=== PATIENT | male | born 1985 | race Caucasian/White ===

== ENCOUNTER 2020-02-03 17:40 | Emergency (ER) | payer BC, SELFPAY ==
[2020-02-03] VITALS (10 sets, daily range): BP systolic 122–159; BP diastolic 80–107; PULSE 61–80; RESP 20; TEMP 36.9; O2SAT 96–98
--- NOTE | ~2020-02-03 | XR_ITS ---
EXAMINATION: XR chest 2V 02/03/2020 18:27 INDICATION: Chest pain. PROCEDURE: 2 view chest COMPARISON: No prior studies for comparison. FINDINGS: The lungs are clear. The cardiomediastinal silhouette is within normal limits. There are no pleural effusions. There is no pneumothorax suspected. IMPRESSION: 1: NO ACUTE CARDIOPULMONARY DISEASE. Reviewed, dictated and finalized at location A.
--- NOTE | ~2020-02-03 | CT_ITS ---
EXAMINATION: CT BRAIN W/O DATE: 02/03/2020 19:28 INDICATION: Dizziness TECHNIQUE: Computed tomography (CT) of the head was performed without intravenous contrast. The dose- length product was 605.33 mGy-cm. The mA was adjusted according to patient size. Iterative reconstruc tion technique was employed. COMPARISON: No prior studies for comparison. FINDINGS: Normal brain parenchymal volume for age. Normal hall-white differentiation. No acute intrac ranial hemorrhage, infarction, mass or mass effect. No ventriculomegaly or midline shift. Midline sagittal images demonstrate a normal corpus callosum, c raniovertebral junction and sella turcica. Basilar cisterns are patent. Paranasal sinuses and mastoids are pneumatized. No depressed skull fractures. IMPRESSION: 1. No acute intracranial abnormality. Reviewed, dictated and finalized at location A.
--- NOTE | 2020-02-03 17:52 | ECG_ITS ---
Measurements Intervals [place] Rate: 61 P: -24 [place]: 148 QRS: 67 QRSD: 89 T: 42 QT: 363 QTc: 366 Interpretive Statements SINUS RHYTHM BASELINE ARTIFACT- I, II, AVR NORMAL ECG Electronically Signed On 02-04-2020 7:02:21 CDT by Jules Abraham D.O.
[2020-02-03 18:08] LABS: Basophils Absolute Auto 0.1 K/mm3 (0.0-0.1); Basophils Percent Auto 0.9 % (0.2-1.2); Eosinophils Absolute Auto 0.3 K/mm3 (0-0.3); Eosinophils Percent Auto 4.4 % (0-4.4); Hemoglobin 16.4 g/dL (14.0-18.0); Immature Granulocyte Absolute 0.02 K/mm3 (0.00-0.031); Immature Granulocyte Percent A 0.3 % (0-0.5); Lymphocytes Absolute Auto 1.98 K/mm3 (0.9-3.2); Lymphocytes Percent Auto 26.4 % (18.3-44.2); Mean Corpuscular HGB Conc 34.2 g/dl (32-36); Mean Corpuscular Volume 87.9 fl (80-100); Mean Platelet Volume 10.2 fl (7.4-10.4); Monocytes Absolute Auto 0.6 K/mm3 (0.1-0.6); Monocytes Percent Auto 7.9 % (2.6-8.5); Neutrophils Absolute Auto 4.5 K/mm3 (1.3-6.7); Neutrophils Percent Auto 60.1 % (45.5-73.1); Platelet Count Result 382 k/mm3 (150-375); Red Blood Count 5.46 M/mm3 (4.6-6.20); Red Cell Distribution Width 12.5 % (11.5-14.5); White Blood Count 7.5 K/mm3 (4.5-10.0)
[2020-02-03] MEDS: ASPIRIN 81 MG CHEWABLE TABLET 324 MG PO (18:08)
[2020-02-03 18:22] LABS: Blood Urea Nitrogen 17 mg/dL (9-20); Calcium 9.4 mg/dL (8.4-10.2); Carbon Dioxide 27 mmol/L (22-30); Chloride 104 mmol/L (98-107); Estimated CRCL calculation 119 ml/min; Estimated Glomerular Filt Rate > 60; Glucose 99 mg/dL (75-110); Potassium 4.2 mmol/L (3.4-5.0); Sodium 138 mmol/L (137-145)
[2020-02-03 18:33] LABS: Troponin I < 0.012 ng/mL (0.000-0.034)
--- NOTE | 2020-02-03 19:11 | ED.GENADULT ---
HPI - General Adult General Chief complaint: Chest Pain Stated complaint: Dizzy, Fatigue, CP - med rxn ? Time Seen by Provider: 02/03/20 19:04 Source: RN notes reviewed History of Present Illness HPI narrative: Patient presents emergency department from home for multiple complaints. Patient states at work today began to experience fatigue. He states that with fatigue he also noted intermittent dizziness. Patient also states that he had intermittent left-sided chest pain. He states the pain is described as sharp and stabbing and would last 1 to 2 seconds and then resolve states he did feel mild shortness of breath intermittently today as well he denies any current symptoms he denies having any fevers or chills cough abdominal pain nausea vomiting or any other symptoms. He states he did begin taking paroxetine and propanolol this week for migraines Related Data Home Medications Medication Instructions Recorded Confirmed paroxetine HCl 10 mg PO QAM 02/03/20 02/03/20 propranolol 60 mg PO DAILY 02/03/20 02/03/20 Allergies Allergy/AdvReac Type Severity Reaction Status Date / Time No Known Allergies Allergy Verified 02/03/20 17:50 Review of Systems Review of Systems: Narrative: Gen.: Denies fevers or chills Eyes: Denies eye pain or visual change ENT: Denies congestion Respiratory: Reports intermittent shortness of breath CV: Reports chest pain GI: Denies abdominal pain nausea, emesis or diarrhea denies burning, urgency, frequency or hematuria Musculoskeletal: Denies back pain or muscle pain Neuro: Denies numbness, tingling, reports dizziness and fatigue Skin: Denies rash Except as documented, all other systems reviewed and negative PENDING SALE TO [facility] Past Medical History Medical History (Updated 02/03/20 @ 21:32 by Johnny Lai DO) Migraine headache Social History Social History (Updated 02/03/20 @ 19:12 by Johnny Lai DO) Smoking status: Never smoker Gender identity (if verbalized by the patient): Male Exam Narrative: Exam Narrative: APPEARANCE: No acute distress, nontoxic, resting in bed EYES: EOMI HEENT: Normocephalic, atraumatic, OMM RESPIRATORY: No respiratory distress Clear to auscultation bilaterally with no rhonchi wheezing or rales. CARDIOVASCULAR: Regular rate and rhythm without murmurs rubs or gallops. ABDOMINAL: Soft, nontender, nondistended, no rebound or guarding MUSCULOSKELETAl: Moves all extremities. No clubbing, cyanosis or edema. NEURO: Awake and alertx 3. Following commands, speech normal, no focal deficits. SKIN:: Warm, dry. No rashes lesions or abrasions PSYCHIATRIC: Normal affect/mood, Course Course Emergency Course: Patient is remained asymptomatic throughout stay in ED Discussed with patient results of workup and diagnosis. Discussed need for follow-up with primary care, proper use of medication, and reasons to return to the emergency department. Patient understands and agrees to current treatment plan. We discussed the patient's propanolol discussed possibly holding to see if improvement in symptoms Vital Signs Vital signs: Vital Signs Temperature 98.4 F 02/03/20 17:44 Pulse Rate 63 02/03/20 17:44 Respiratory Rate 20 02/03/20 17:44 Blood Pressure 159/97 H 02/03/20 17:44 Pulse Oximetry 96 02/03/20 17:44 Temperature 98.4 F 02/03/20 17:44 Pulse Rate 75 02/03/20 21:30 Respiratory Rate 20 02/03/20 21:30 Blood Pressure 128/92 H 02/03/20 21:30 Pulse Oximetry 96 02/03/20 21:30 Medical Decision Making MDM Narrative Medical decision making narrative: Patient's EKGs and labs are without significant high risk changes. Cardiac risk factors reviewed. Patient is felt likely low risk for ACS and reasonable for further risk stratification testing as an outpatient. Pain was not sudden or maximal in onset without tearing or ripping quality. No other signs of symptoms suggest aortic dissection. A low-risk Wells criteria is noted, PE is felt to be unlikely.
[2020-02-03 19:34] LABS: D Dimer 0.27 ug/mL (<0.48)
[2020-02-03] MEDS: SODIUM CHLORIDE 0.9% IV 1,000 ML 999 ML IV CONT (19:44)
[2020-02-03 21:29] LABS: Troponin I < 0.012 ng/mL (0.000-0.034)
== END 2020-02-03 21:43 | disposition home or self-care (01) ==
PROVIDERS: Physician Assistant; Emergency Provider Emergency Medicine; PCP Physician Assistant
DX: R42 Dizziness and giddiness (principal); R07.89 Other chest pain
CPT/HCPCS: 36415; 70450; 71046; 80048; 84484; 85025; 85380; 85610; 85730; 93005; 96360; 99284; A9270; J7030

== ENCOUNTER → 2021-11-18 13:00 | Outpatient (CLI) | payer SELFPAY ==
--- NOTE | ~2021-11-18 | XR_ITS ---
XR knee RT 3V 11/18/2021 13:31 INDICATION: Right knee pain PROCEDURE: 4 views right knee COMPARISON: No prior studies for comparison. FINDINGS: Fracture, dislocation or subluxation is not identified. No significant joint effusion. The soft tissues appear within normal limits. No foreign bodies are identified. IMPRESSION: 1: NO ACUTE BONE OR JOINT ABNORMALITY IDENTIFIED. Reviewed, dictated and finalized at location B.
== END ==
PROVIDERS: PCP Physician Assistant; Visit Provider Physician Assistant
DX: M25.561 Pain in right knee (principal)
CPT/HCPCS: 73562

== ENCOUNTER 2024-03-07 11:51 | Emergency (ER) | payer OTHER, SELFPAY ==
[2024-03-07] VITALS (7 sets, daily range): BP systolic 117–139; BP diastolic 89–108; PULSE 81–122; RESP 13–16; TEMP 36.8–37.1; O2SAT 98–100
--- NOTE | ~2024-03-07 | CT_ITS ---
EXAMINATION: CT abdomen pelvis w con DATE: 03/07/2024 13:44 INDICATION: Intermittent abdominal pain. Vomiting. TECHNIQUE: Computed tomography (CT) of the abdomen and pelvis was performed with 100 mL Omnipaque 350 intravenous contrast. Automated exposure control and iterative reconstruction technique were employe d. The dose-length product was 438.07 mGy-cm. COMPARISON: None. FINDINGS: The visualized portions of the lung bases demonstrate mild atelectasis. No pleural effusion . The heart size is normal. No pericardial effusion. The liver, gallbladder, spleen, pancreas, and ad renal glands are normal. There is a 5 mm stone in right kidney. There is a 5 mm stone in left kidney. There are no dilated loops of bowel. The appendix is normal. There are no pathologically enlarged ly mph nodes. There is no free intraperitoneal fluid. There is mild lumbar spondylosis. IMPRESSION: 1. No etiology for the patient's symptoms. Reviewed, dictated and finalized at location A.
--- NOTE | 2024-03-07 12:43 | ED.ABDPAIN ---
HPI - Abdominal Pain General Chief Complaint: Abdominal Pain Stated Complaint: abd pain, constipation, Time Seen by Provider: 03/07/24 12:42 Source: patient History of Present Illness HPI narrative: 39 years old white male came to the emergency room with intermittent cramps right lower quadrant for the last 2 weeks, associated with intermittent nausea. He denies any fever any chills or vomiting diarrhea or constipation urinary symptoms. History of depression anxiety ADHD, reports a lot of stress lately. He denies any history of abdominal surgery. Patient drove himself to the emergency room. Currently feeling okay declined any pain medication. Related Data Home Medications Medication Instructions Recorded Confirmed paroxetine HCl 10 mg tablet 10 mg PO QAM 02/03/20 02/03/20 propranolol 60 mg capsule,24 60 mg PO DAILY 02/03/20 02/03/20 hr,extended release Allergies Allergy/AdvReac Type Severity Reaction Status Date / Time No Known Allergies Allergy Verified 03/13/20 13:07 Review of Systems Review of Systems: All systems reviewed & are unremarkable except as noted in HPI and below PMFSH Past Medical History Medical History Migraine headache Social History Social History Smoking status: Never smoker Gender identity (if verbalized by the patient): Male Exam Narrative: General appearance: Well-developed, well-nourished Skin: Normal color Head: Normocephalic, nontraumatic Eyes: Clear conjunctiva ENT: Oropharynx normal, ears normal, nose normal Neck: Supple, nontender Chest and respiratory: Airway patent, no respiratory distress, no accessory muscle use Heart: Regular rate/rhythm Abdomen: Soft, slight tenderness right lower quadrant, no guarding or rebound, no organomegaly, quiet bowel sounds Vascular: Normal peripheral pulses, normal capillary refill. Musculoskeletal: Normal range of motion, nontender back Neurologic: Alert and oriented ?3, [employer] is normal as tested, no gross motor deficit Course Vital Signs Vital signs: Vital Signs Temperature 37.1 C 03/07/24 11:54 Pulse Rate 122 H 03/07/24 11:54 Respiratory Rate 13 03/07/24 11:54 Blood Pressure 139/108 H 03/07/24 11:54 Pulse Oximetry 98 03/07/24 11:54 Oxygen Delivery Room Air 03/07/24 11:54 Temperature 36.8 C 03/07/24 12:57 Pulse Rate 81 03/07/24 12:57 Respiratory Rate 16 03/07/24 12:57 Blood Pressure 134/96 H 03/07/24 12:57 Pulse Oximetry 98 03/07/24 12:57 Oxygen Delivery Room Air 03/07/24 11:54 MDM - Abdominal Pain MDM Narrative Medical decision making narrative: Patient complaining of right lower quadrant cramps for the last 2 weeks. Currently patient feeling okay. My differential diagnosis include abdominal wall pain, stress and anxiety related symptoms, constipation, colitis, appendicitis, diverticulitis, less likely urinary tract infection. My plan to get blood workup and CT scan of the abdomen and pelvis to rule out intra-abdominal pathology at this time. Differential Diagnosis Differential diagnosis: Likely abdominal pain, acute appendicitis, calculus of kidney, constipation and diverticulitis Medical Records Attestation: I reviewed the patient's medical records. Lab Data Attestation: I reviewed the patient's lab results. 03/07/24 13:00 03/07/24 13:00 Labs: Lab Results 03/07/24 03/07/24 Range/Units 13:00 14:36 WBC 11.7 H (4.5-10.0) K/mm3 RBC 5.16 (4.6-6.20) M/mm3 Hgb 16.0 (14.0-18.0) g/dL Hct 46.3 (42.0-52.0) % MCV 89.7 (80-100) fl MCH 31.0
[2024-03-07] MEDS: ONDANSETRON INJ 4 MG/2 ML VIAL IV PUSH (12:59)
[2024-03-07] MEDS: SODIUM CHLORIDE 0.9% IV 1,000 ML 999 ML IV CONT (12:59)
[2024-03-07 13:08] LABS: Basophils Absolute Auto 0.1 K/mm3 (0.0-0.1); Basophils Percent Auto 0.7 % (0.2-1.2); Eosinophils Absolute Auto 0.3 K/mm3 (0-0.3); Eosinophils Percent Auto 2.9 % (0-4.4); Hematocrit 46.3 % (42.0-52.0); Immature Granulocyte Absolute 0.05 K/mm3 (0.00-0.031); Immature Granulocyte Percent A 0.4 % (0-0.5); Lymphocytes Absolute Auto 2.11 K/mm3 (0.9-3.2); Mean Corpuscular HGB Conc 34.6 g/dl (32-36); Mean Corpuscular Volume 89.7 fl (80-100); Monocytes Absolute Auto 0.9 K/mm3 (0.1-0.6); Monocytes Percent Auto 7.4 % (2.6-8.5); Neutrophils Absolute Auto 8.3 K/mm3 (1.3-6.7); Neutrophils Percent Auto 70.6 % (45.5-73.1); Platelet Count Result 378 k/mm3 (150-375); Red Blood Count 5.16 M/mm3 (4.6-6.20); Red Cell Distribution Width 13.8 % (11.5-14.5); White Blood Count 11.7 K/mm3 (4.5-10.0)
[2024-03-07 13:20] LABS: Alanine Aminotransferase 20 U/L (6-50); Albumin Level 4.7 g/dL (3.5-5.1); Alkaline Phosphatase 91 U/L (38-126); Anion Gap 7 mmol/L (4-12); Aspartate Amino Transferase 25 U/L (17-59); Bilirubin,Total 0.5 mg/dL (0.2-1.3); Blood Urea Nitrogen 12 mg/dL (9-20); Calcium 9.8 mg/dL (8.4-10.2); Carbon Dioxide 30 mmol/L (22-30); Chloride 104 mmol/L (98-107); Estimated CRCL calculation 102 ml/min; Estimated Glomerular Filt Rate > 60; Glucose 92 mg/dL (65-110); Lipase 87 U/L (23-300); Sodium 141 mmol/L (137-145)
[2024-03-07 14:44] LABS: Appearance Urine Clear (Clear); Bilirubin Urine Negative (Negative); Blood Urine Negative (Negative); Color Urine Yellow (Yellow); Glucose Urine UA Negative (Negative); Ketones Urine Negative (Negative); Leukocyte Esterase Ur Negative LEU/UL (Negative); Nitrate Urine Negative (Negative); Protein Urine Negative (Negative); Urobilinogen Urine 0.2 mg/dL (<2.0)
[2024-03-07 14:51] LABS: Add Urine Microscopic? NO; Specific Grav Ur 1.072 (1.001-1.035)
== END 2024-03-07 15:38 | disposition home or self-care (01) ==
PROVIDERS: Emergency Provider Emergency Medicine; PCP Physician Assistant
DX: R10.31 Right lower quadrant pain (principal)
CPT/HCPCS: 36415; 74177; 80053; 81003; 83690; 85025; 96374; 99284; J2405; J7030; Q9967

== ENCOUNTER 2024-05-31 11:38 | Emergency (ER) | payer OTHER, SELFPAY ==
[2024-05-31 11:56] VITALS: BP 115/87; PULSE 94; RESP 16; TEMP 36.6; O2SAT 97
--- NOTE | 2024-05-31 12:05 | ED.BACK ---
HPI - Back Pain/Injury General Chief Complaint: Back Pain/Injury Stated Complaint: Lower Back Pain Time Seen by Provider: 05/31/24 12:09 Source: patient, RN notes reviewed and old records reviewed Mode of arrival: ambulatory Limitations: no limitations History of Present Illness HPI Narrative: patient presents with complaints of right-sided low back pain that began about 3 weeks ago. He reports that he with lifting a lawnmower out of a vehicle, felt pain at that time. He has been using ice, stretching, heat. He states that yesterday he was putting an object down, felt the back spasm, and has had increased pain ever since. He denies any numbness or tingling. He denies any loss of bowel or bladder control. He is observed ambulating with steady gait. He denies other injury and trauma. He voices no other concerns or complaints today. Related Data Home Medications Medication Instructions Recorded Confirmed paroxetine HCl 10 mg tablet 10 mg PO QAM 02/03/20 05/31/24 fluoxetine 20 mg capsule 30 mg PO DAILY 05/31/24 05/31/24 viloxazine 200 mg capsule,extended 200 mg PO DAILY 05/31/24 05/31/24 release 24 hr (Qelbree) Allergies Allergy/AdvReac Type Severity Reaction Status Date / Time No Known Allergies Allergy Verified 05/31/24 11:47 Review of Systems Review of Systems: All systems reviewed & are unremarkable except as noted in HPI and below Constitutional: Constitutional: Reports no additional constitutional complaints ENT: Reports system reviewed and no additional complaints, except as documented Cardiovascular: Cardiovascular: Reports no additional cardiovascular complaints Respiratory: Respiratory: Reports no additional respiratory complaints Gastrointestinal: Gastrointestinal: Reports no additional gastrointestinal complaints Musculoskeletal: Musculoskeletal: Reports no additional musculoskeletal complaints and Reports as per HPI [facility] Past Medical History Medical History Migraine headache Social History Social History Smoking status: Never smoker Gender identity (if verbalized by the patient): Male Comments At the time of my signature, I reviewed and agree with the nursing past medical, surgical, social, and family history. There is no relevant family history pertinent to the patient complaint. Exam Const: General: cooperative, no acute distress, alert and awake Orientation/consciousness: oriented to person, oriented to place and oriented to time HENMT: Head: normal to inspection Resp: Effort & Inspection: normal respiratory effort and able to speak in complete sentences Auscultation: clear to auscultation bilaterally, no crackles, no rales, no rhonchi and no wheezes Cardio: Palpation: normal PMI Rate: regular rate Rhythm: regular rhythm Heart sounds: S1 normal heart sound present and S2 normal heart sound present Back/Spine/Pelvis: Back: no CVA tenderness Cervical Spine: cervical ROM normal Thoracic/Lumbar Spine: paraspinal muscle tenderness, thoraco-lumbar spasm, No thoracic spinal tenderness and No lumbar spinal tenderness Neuro: General: oriented to person, oriented to place and oriented to time Cranial nerves: Yes CN's II-XII intact bilaterally Psych: Appearance: grossly normal Thought process: Normal thought process present Insight: Good insight present (Psych) Judgement: Good judgement present (Psych) Course Course Level of Care: Express Care Visit Vital Signs Vital signs: Vital Signs Temperature 97.8 F 05/31/24 11:56 Pulse Rate 94 05/31/24 11:56 Respiratory Rate 16 05/31/24 11:56 Blood Pressure 115/87 05/31/24 11:56 Pulse Oximetry 97 05/31/24 11:56 Oxygen Delivery Room Air 05/31/24 11:56 Temperature 97.8 F 05/31/24 11:56 Pulse Rate 94 05/31/24 11:56 Respiratory Rate 16 05/31/24 11:56 Blood Pressure 115/87 05/31/24 11:56
== END 2024-05-31 12:23 | disposition home or self-care (01) ==
PROVIDERS: Emergency Provider Nurse Practitioner Family; PCP Physician Assistant
DX: M54.16 Radiculopathy, lumbar region (principal)
CPT/HCPCS: 99213; G0463

== ENCOUNTER 2024-06-15 12:06 | Emergency (ER) | payer OTHER, SELFPAY ==
--- NOTE | ~2024-06-15 | XR_ITS ---
EXAMINATION: XR chest 2V 06/15/2024 12:41 INDICATION: Cough and rib pain PROCEDURE: 2 view chest COMPARISON: 02/03/2020 FINDINGS: The lungs are clear. The cardiomediastinal silhouette is within normal limits. There are no pleural effusions. There is no pneumothorax suspected. IMPRESSION: 1: NO ACUTE CARDIOPULMONARY DISEASE. Reviewed, dictated and finalized at location B.
[2024-06-15 12:16] VITALS: BP 135/93; PULSE 119; RESP 18; TEMP 36.4; O2SAT 96
--- NOTE | 2024-06-15 12:33 | ED.BACK ---
HPI - Back Pain/Injury General Chief Complaint: Back Pain/Injury Stated Complaint: back spasms and lung pain Time Seen by Provider: 06/15/24 12:09 Source: patient Mode of arrival: ambulatory Limitations: no limitations History of Present Illness HPI Narrative: Patient is a 39-year-old male who presents with left-sided scapular low back pain along with left lower rib pain when coughing. Patient was seen here 06/03 for pain on right side of back after helping lift a lawnmower. Patient was given steroids and Flexeril. Patient states those helped and pain on left side of body started 2 days after finishing prednisone. Patient denies any new injury. Patient states he has a chronic smoker's cough, but is concern for aspiration pneumonia and after vomiting. Patient has been taking naproxen as needed for pain. Denies any fever, chills, nausea, diarrhea. Denies any numbness, tingling or weakness to extremities. Related Data Home Medications Medication Instructions Recorded Confirmed paroxetine HCl 10 mg tablet 10 mg PO QAM 02/03/20 06/15/24 fluoxetine 20 mg capsule 30 mg PO DAILY 05/31/24 06/15/24 viloxazine 200 mg capsule,extended 200 mg PO DAILY 05/31/24 06/15/24 release 24 hr (Qelbree) clindamycin phosphate 1 % lotion 1 applic topical BID 06/15/24 06/15/24 Allergies Allergy/AdvReac Type Severity Reaction Status Date / Time No Known Allergies Allergy Verified 06/15/24 12:08 Review of Systems Review of Systems: All systems reviewed & are unremarkable except as noted in HPI and below Constitutional: Constitutional: Denies body ache(s), Denies chills, Denies fatigue, Denies fever(s), Denies headache(s), Denies malaise and Denies weakness Eyes: Eyes: Denies blurry vision, Denies irritation and Denies loss of vision ENT: Denies otalgia, Denies headache(s), Denies nasal discharge, Denies sinus pain and Denies sore throat Cardiovascular: Cardiovascular: Denies chest pain, Denies irregular heart rhythm and Denies dyspnea Respiratory: Respiratory: Denies dyspnea Gastrointestinal: Gastrointestinal: Denies abdominal pain, Denies melena, Denies hematochezia, Denies diarrhea, Denies nausea and Denies vomiting Musculoskeletal: Musculoskeletal: Reports back pain, Denies myalgias and Denies arthralgias Integumentary/Breasts: Skin/Breast: Denies pruritus and Denies rash Neurologic: Denies headache(s), Denies loss of vision and Denies weakness Psychiatric: Psychiatric: Reports no additional psychiatric complaints Endocrine: Endocrine: Denies fatigue PMFSH Past Medical History Medical History Migraine headache Social History Social History Smoking status: Never smoker Gender identity (if verbalized by the patient): Male Comments At time of signature, agree with nursing past medical, surgical, social and family history. There is no relevant family history pertinent to the presenting complaint. Exam Const: General: cooperative, healthy appearing, comfortable, no acute distress and well nourished Nutritional Appearance: well nourished Orientation/consciousness: patient oriented x3 Limitations: no limitations HENMT: Head: normal to inspection, normocephalic and atraumatic Ears: hearing grossly normal bilaterally and external ears normal Face/Nose/Sinus: Normal external nose present, normal facial exam and face symmetric Face and sinus: normal facial exam and face symmetric Mouth: Yes lip normal Eyes: General: appearance normal, both eyes and all related structures Alignment and Position: alignment normal and position normal Periorbital: periorbital findings normal Eyelids: eyelids normal Pupils: Equal, round and reactive pupils present EOM: EOMs intact bilaterally Neck: Neck: normal visual inspection, full ROM and supple Chest: Chest palpation & inspection: normal inspection of the chest Resp: Effo
[2024-06-15 13:10] VITALS: BP 126/83; PULSE 90
== END 2024-06-15 13:16 | disposition home or self-care (01) ==
PROVIDERS: Emergency Provider Nurse Practitioner Family; PCP Physician Assistant
DX: S29.011A Strain of muscle and tendon of front wall of thorax, initial encounter (principal); X58.XXXA Exposure to other specified factors, initial encounter
CPT/HCPCS: 71046; 99213; G0463

== ENCOUNTER 2025-01-27 10:12 | Emergency (ER) | payer OTHER, SELFPAY ==
--- NOTE | ~2025-01-27 | CT_ITS ---
CT of the Abdomen and Pelvis: Indication: Abdominal pain Technique: 2.5 mm axial scans were obtained through the abdomen and pelvis following intravenous adm inistration of 100 cc of Omnipaque 350. Dose reduction technique was used on this scan by utilizing a utomated exposure control and iterative reconstruction technique. The dose-length product (DLP) was 3 96.40 mGy-cm. COMPARISON: 03/07/2024 Findings: Scans through the lung bases are unremarkable. The liver, spleen, pancreas, gallbladder, and adrenal glands are within normal limits. 9 mm nonobstru cting right renal stone present. 8 mm nonobstructing left renal stone noted. No evidence of aortic an eurysm. No lymphadenopathy. No bowel obstruction or bowel wall thickening. There is no evidence to suggest acute appendicitis. Images through the pelvis were performed. Urinary bladder unremarkable. No pelvic mass seen. No ascit es. Impression: No acute abnormality. Bilateral nonobstructing renal stones, as detailed above. Reviewed, dictated and finalized at location . Impression: No acute abnormality. Bilateral nonobstructing renal stones, as detailed above.
--- OUTSIDE RECORDS SUMMARY | 2025-01-27 10:16 | XMS_ITS | Clinical Summary ---
Author Organization [facility] Address [address] [place] [address] [place] [address] Care Team Providers Care Dye Feeder Name Role Phone Unavailable Primary Care Provider Unavailabl e Allergies No known active allergies Medications PARoxetine HCl (PAXIL) 40 mg tablet Take 40 mg by mouth. 0 Active SUMAtriptan (IMITREX) 50 mg tablet sumatriptan 50 mg tablet TAKE ONE TABLET BY MOUTH AT ONSET OF MIGRAINE MAY REPEAT IF NEEDED AFTER ONE HOUR Active Active Problems No known active problems Social History Tobacco Use Types Packs/Day Years Used Date Smoking Tobacco: Never Tobacco Cessation:Counseling Given: No Sex and Gender Information Value Date Recorded Sex Assigned at Not on file Legal Sex Male 7:48 PM [employer] Gender Identity Not on file Sexual Orientation Not on file Last Filed Vital Signs Vital Sign Reading Time Taken Comments Blood Pressure 114/76 09/28/2020 2:08 PM [employer] Pulse 99 09/28/2020 2:08 PM [employer] Temperature 36.2 C (97.1 F) 09/28/2020 2:08 PM [employer] Respiratory Rate 18 09/28/2020 2:08 PM [employer] Oxygen Saturation 99% 09/28/2020 2:08 PM [employer] Inhaled Oxygen Concentration - - Weight 88.5 kg (195 lb) 09/28/2020 2:08 PM [employer] Height 177.8 cm (5' 10 ) 09/28/2020 2:08 PM [employer] Body Mass Index 27.98 09/28/2020 2:08 PM [employer] Plan of Treatment Health Maintenance Due Date Last Done Comments DTAP/TDAP/TD VACCINES (1 - Tdap) 2006 HEPATITIS B VACCINES (1 of 3 - 19+ 3-dose series) 2006 INFLUENZA VACCINE (#1) 2024 HPV VACCINES Aged Out No longer eligi ble based on patient's age to complete this topic Insurance
--- OUTSIDE RECORDS SUMMARY | 2025-01-27 10:16 | XMS_ITS | Patient Health Record ---
Author Organization [facility] Address [address] [place] [address] Care Team Providers Care Service Unit Operator Name Role Phone KalpanamauryRonie Primary Care Provider [phone] Allergies No Known Allergies Reason For Referral No Information Medications Medication SIG (Take, Route, Fr equency, Duration) Notes Start Date End Date Status FLUoxetine HCl 20 MG 2 capsule Orally On ce a day for 7 days Active Qelbree 200 MG 1 capsule Orally Onc e a day for 7 days Active PARoxetine HCl 10 MG 1 tablet in the mor jess Orally Once a day Active Qelbree 200 MG 1 capsule Orally Onc e a day for 30 days Active PARoxetine HCl 10 MG 1 tablet in the mor jess Orally Once a day for 30 days Active FLUoxetine HCl 40 MG 1 capsule Orally On ce a day for 30 days Active Social History Tobacco Use: Social History Observation Description Date Details (start date - stop date) Current Smoker NA - NA Sex Assigned At : Social History Observation Description Sex Assigned At Male Dont use, Tobacco Use/Smoking Question Answer Notes Are you a current smoker Alcohol Screen (Audit-C) Question Answer Notes Did you have a drink contain ing alcohol in the past year? Yes How often did you have a dri nk containing alcohol in the past year? Monthly or less (1 point) How many drinks did you have on a typical day when you were drinking in the past year? 3 or 4 drinks (1 point) How often did you have 6 or more drinks on one occasion in the past year? Never (0 point) Points 2 Interpretation Negative Tobacco Control (Standard) Question Answer Notes Tobacco use: Current smoker How many cigarettes a day do you smoke? 07-27 Section Notes: ahdh, depression, anxiety ahdh, depression, anxiety ahdh, depression, anxiety ahdh, depression, anxiety ahdh, depression, anxiety ahdh, depression, anxiety ahdh, depression, anxiety ahdh, depression, anxiety ahdh, depression, anxiety ahdh, depression, anxiety ahdh, depression, anxiety ahdh, depression, anxiety ahdh, depression, anxiety ahdh, depression, anxiety ahdh, depression, anxiety ahdh, depression, anxiety Problems Problem Type SNOMED Code ICD Code Onset Dates Problem Status W/U Status Risk Notes Problem Tobacco user (480191115) Nicotine dependence, unspecified, uncomplicated (F17.200) Active confirmed Problem Depression (545049086) Depression (F32.9) Active confirmed Problem ADD (attention deficit disorder) (F90.0) Active confirmed Vital Signs Heart Rate 72 /min 09/19/2024 Respiratory Rate 18 /min 09/19/2024 Oximetry 97 % 09/19/2024 Blood pressure diastolic 70 mm Hg 09/19/2024 Height 70 in 09/19/2024 Blood pressure systolic 126 mm Hg 09/19/2024 Weight 180 lb 6 oz lbs 09/19/2024 BMI 25.88 kg/m2 09/19/2024 Encounters Encounter Location Date Provider Diagnosis [facility] [address] [place] [address] 02/22/2024 Diamond Sparr Depression F32.9 and ADD (attention deficit disorder) F90.0 [facility] [address] [place] [address] 03/14/2024 Diamond Sparr Depression F32.9 and ADD (attention deficit disorder) F90.0 [facility] [address] [place] [address] 04/18/2024 Diamond Sparr Depression F32.9 and ADD (attention deficit disorder) F90.0 [facility] [address] [place] [address] 06/27/2024 Diamond Sparr Depression F32.9 and ADD (attention deficit disorder) F90.0 [facility] [address] [place] [address] 08/15/2024 Diamond Sparr Depression F32.9 and ADD (attention deficit disorder) F90.0 [facility] [address] [place] [address] 09/19/2024 Diamond Sparr Depression F32.9 and ADD (attention deficit disorder) F90.0 [facility] [address], [place] [address] 11/25/2024 Diamond Sparr Depression F32.9 and ADD (attention deficit disorder) F90.0 [facility] [address] [place] [address] 03/07/2024 Diamond Sparr [facility] [address], [place] [address] 04/13/2024 Diamond Sparr Depression F32.9 and ADD (attention deficit disorder) F90.0 [facility] [address], [place] [address] 05/23/2024 Diamond Sparr [address] [place] [address] 06/20/2024 Diamond Sparr Depression F32.[address] [address] 09/15/2024 Diamond Acunar Assessments Encounter Date Diagnosis (ICD Code) Assessment Notes Treatment Notes Treatment Clinical Notes Section Notes 03/14/2024 Depression (ICD-10 - F32.9) Reasons, potential benefits, interactions and side effects of all medications were discussed.The Patient/Guardian asked appropriate questions, appeared to understand the answers, and decided to accept the treatment and continue being followed.Alternatives and expected course without treatment were reviewed.The Patient/Guardian is aware of the need to contact the office or return for an earlier appointment if any problems or concerns arise. May also contact the 24-hour crisis hotline (R), refer to the closest emergency room or call 911 if new symptoms arise or existing symptoms worsen. The Patient/Guardian is aware that this would apply to symptoms like: suicidal ideation, homicidal ideation, high risk behaviors, manic symptoms, psychotic symptoms, physical symptoms, or any other symptoms that may be dangerous to self or others.Greater than 50% of time spent on coordination and counseling where psychopharmacology as well as psychotherapeutic interventions were discussed along with review of treatments in the past.Education provided concerning need for adequate hydration.Patient/Guar conchis verbalized understanding of education, treatment plan and follow up. Appointment performed in person.Follow up in 3-4 weeks or sooner as needed. May self-administer or be administered own oral medication per [facility] Protocols. Provided informed consent with understanding of side effects, risks and benefits as well as alternative treatments as previously discussed and with the above recommended medications ang other aspects of the treatment program. Agrees to return sooner if symptoms worsen or suicidal or homicidal ideations occur. support and education provided concerning illness and treatment plan, risks and benefits, pt verbalized understanding of the same and agreeable _DC Wellbutrin __re-start Paroxetine due to increased depression, increased anxiety, poor sleep, poor energy and motivation, evaluate at follow up __titrate Fluoxetine for depression and anxiety, evaluate at follow up __has felt nauseated, increased stress and anxiety, increaesed depression, insomnia, poor quality sleep, night sweats with Paroxetine DC, re-start Paroxetine and titrate Fluoxetine __ 09/19/2024 Depression (ICD-10 - F32.9) Reasons, potential benefits, interactions and side effects of all medications were discussed.The Patient/Guardian asked appropriate questions, appeared to understand the answers, and decided to accept the treatment and continue being followed.Alternatives and expected course without treatment were reviewed.The Patient/Guardian is aware of the need to contact the office or return for an earlier appointment if any problems or concerns arise. May also contact the 24-hour crisis hotline ([facility]), refer to the closest emergency room or call 911 if new symptoms arise or existing symptoms worsen. The Patient/Guardian is aware that this would apply to symptoms like: suicidal ideation, homicidal ideation, high risk behaviors, manic symptoms, psychotic symptoms, physical symptoms, or any other symptoms that may be dangerous to self or others.Greater than 50% of time spent on coordination and counseling where psychopharmacology as well as psychotherapeutic interventions were discussed along with review of treatments in the past.Education provided concerning need for adequate hydration.Patient/Guar conchis verbalized understanding of education, treatment plan and follow up. Appointment performed in person.Follow up in 2 MO or sooner as needed. May self-administer or be administered own oral medication per [facility] Protocols. Provided informed consent with understanding of side effects, risks and benefits as well as alternative treatments as previously discussed and with the above recommended medications ang other aspects of the treatment program. Agrees to return sooner if symptoms worsen or suicidal or homicidal ideations occur. support and education provided concerning illness and treatment plan, risks and benefits, pt verbalized understanding of the same and agreeable __feeling better overall, mood has leveled out, mild anxiety and depression come and go, feels these are manageable. Still feels affected by the weather and lack of sun, but feels mood isn't affected as severely as it had been. Good sleep, denies mood swings or irritability. Experiences night sweats, feels this is related to Prozac and Paxil, feels this SE is manageable at present _continue Fluoxetine for depression and anxiety, evaluate at follow up __continue Paxil for depression, anxiety, evaluate at follow up __ __ Box Light Therapy - can help seasonal affective disorder. The light box should provide an exposure of 10,000 lux of light and produce little to no UV light. Use within the first hour of waking up in the morning for 20-30 minutes. Keep the light box about 16-24 inches from your face but follow the chief analytics officer's instructions about distance. Keep eyes open but do not look directly into the light. 11/25/2024 Depression (ICD-10 - F32.9) Reasons, potential benefits, interactions and side effects of all medications were discussed.The Patient/Guardian asked appropriate questions, appeared to understand the answers, and decided to accept the treatment and continue being followed.Alternatives and expected course without treatment were reviewed.The Patient/Guardian is aware of the need to contact the office or return for an earlier appointment if any problems or concerns arise. May also contact the 24-hour crisis hotline (R), refer to the closest emergency room or call 911 if new symptoms arise or existing symptoms worsen. The Patient/Guardian is aware that this would apply to symptoms like: suicidal ideation, homicidal ideation, high risk behaviors, manic symptoms, psychotic symptoms, physical symptoms, or any other symptoms that may be dangerous to self or others.Greater than 50% of time spent on coordination and counseling where psychopharmacology as well as psychotherapeutic interventions were discussed along with review of treatments in the past.Education provided concerning need for adequate hydration.Patient/Guar conchis verbalized understanding of education, treatment plan and follow up. Appointment performed via telephone appt with pt consentFollow up in 3 MO or sooner as needed. May self-administer or be administered own oral medication per [facility] Prot[facility]. Provided informed consent with understanding of side effects, risks and benefits as well as alternative treatments as previously discussed and with the above recommended medications ang other aspects of the treatment program. Agrees to return sooner if symptoms worsen or suicidal or homicidal ideations occur. support and education provided concerning illness and treatment plan, risks and benefits, pt verbalized understanding of the same and agreeable __feeling good, mood has been stable, was just offered and accepted a job that he's looking forward to. Feels he'll enjoy the job and will be good at it. Mild depression and anxiety. Good sleep, denies mood swings or irritability. Experiences night sweats, at times feels this is related to Prozac and Paxil, feels this SE is manageable at present. Prefers to continue with same meds, same dose _continue Fluoxetine for depression and anxiety, evaluate at follow up __continue Paxil for depression, anxiety, evaluate at follow up __ __ 08/15/2024 Depression (ICD-10 - F32.9) Reasons, potential benefits, interactions and side effects of all medications were discussed.The Patient/Guardian asked appropriate questions, appeared to understand the answers, and decided to accept the treatment and continue being followed.Alternatives and expected course without treatment were reviewed.The Patient/Guardian is aware of the need to contact the office or return for an earlier appointment if any problems or concerns arise. May also contact the 24-hour crisis hotline ([facility]), refer to the closest emergency room or call 911 if new symptoms arise or existing symptoms worsen. The Patient/Guardian is aware that this would apply to symptoms like: suicidal ideation, homicidal ideation, high risk behaviors, manic symptoms, psychotic symptoms, physical symptoms, or any other symptoms that may be dangerous to self or others.Greater than 50% of time spent on coordination and counseling where psychopharmacology as well as psychotherapeutic interventions were discussed along with review of treatments in the past.Education provided concerning need for adequate hydration.Patient/Guar conchis verbalized understanding of education, treatment plan and follow up. Appointment performed in person.Follow up in 3-4 weeks or sooner as needed. May self-administer or be administered own oral medication per [facility] Protocols. Provided informed consent with understanding of side effects, risks and benefits as well as alternative treatments as previously discussed and with the above recommended medications ang other aspects of the treatment program. Agrees to return sooner if symptoms worsen or suicidal or homicidal ideations occur. support and education provided concerning illness and treatment plan, risks and benefits, pt verbalized understanding of the same and agreeable --feeling better overall, mood has been stable, improved depressed when sun is shining, warmer weather, feels more depressed with cloudy, cold weather, decreased anxiety, irritable at time. Sleep is good, working on setting boundries with family and accepting them where they are _titrate Fluoxetine for increased depression in the winter, evaluate at follow up __continue Paxil for depression, anxiety, evaluate at follow up __ __ Box Light Therapy - can help seasonal affective disorder. The light box should provide an exposure of 10,000 lux of light and produce little to no UV light. Use within the first hour of waking up in the morning for 20-30 minutes. Keep the light box about 16-24 inches from your face but follow the chief analytics officer's instructions about distance. Keep eyes open but do not look directly into the light. 06/27/2024 Depression (ICD-10 - F32.9) Reasons, potential benefits, interactions and side effects of all medications were discussed.The Patient/Guardian asked appropriate questions, appeared to understand the answers, and decided to accept the treatment and continue being followed.Alternatives and expected course without treatment were reviewed.The Patient/Guardian is aware of the need to contact the office or return for an earlier appointment if any problems or concerns arise. May also contact the 24-hour crisis hotline ([facility]), refer to the closest emergency room or call 911 if new symptoms arise or existing symptoms worsen. The Patient/Guardian is aware that this would apply to symptoms like: suicidal ideation, homicidal ideation, high risk behaviors, manic symptoms, psychotic symptoms, physical symptoms, or any other symptoms that may be dangerous to self or others.Greater than 50% of time spent on coordination and counseling where psychopharmacology as well as psychotherapeutic interventions were discussed along with review of treatments in the past.Education provided concerning need for adequate hydration.Patient/Guar conchis verbalized understanding of education, treatment plan and follow up. Appointment performed in person.Follow up in 2 MO or sooner as needed. May self-administer or be administered own oral medication per [facility] Protocols. Provided informed consent with understanding of side effects, risks and benefits as well as alternative treatments as previously discussed and with the above recommended medications ang other aspects of the treatment program. Agrees to return sooner if symptoms worsen or suicidal or homicidal ideations occur. support and education provided concerning illness and treatment plan, risks and benefits, pt verbalized understanding of the same and agreeable _ __continue Paroxetine and Paxil for depression, anxiety, evaluate at follow up __feeling better, feels mood has stabilized, feels less depressed & anxious, feels these are manageable, ran out of meds and was without meds for 5 days, felt more depressed and anxious during that time, prefers to continue with same med same dose __ 06/20/2024 Depression (ICD-10 - F32.9) 04/13/2024 Depression (ICD-10 - F32.9) 02/22/2024 Depression (ICD-10 - F32.9) Reasons, potential benefits, interactions and side effects of all medications were discussed.The Patient/Guardian asked appropriate questions, appeared to understand the answers, and decided to accept the treatment and continue being followed.Alternatives and expected course without treatment were reviewed.The Patient/Guardian is aware of the need to contact the office or return for an earlier appointment if any problems or concerns arise. May also contact the 24-hour crisis hotline ([facility]), refer to the closest emergency room or call 911 if new symptoms arise or existing symptoms worsen. The Patient/Guardian is aware that this would apply to symptoms like: suicidal ideation, homicidal ideation, high risk behaviors, manic symptoms, psychotic symptoms, physical symptoms, or any other symptoms that may be dangerous to self or others.Greater than 50% of time spent on coordination and counseling where psychopharmacology as well as psychotherapeutic interventions were discussed along with review of treatments in the past.Education provided concerning need for adequate hydration.Patient/Guar conchis verbalized understanding of education, treatment plan and follow up. Appointment performed in person.Follow up in 1 MO or sooner as needed. May self-administer or be administered own oral medication per [facility] Protocols. Provided informed consent with understanding of side effects, risks and benefits as well as alternative treatments as previously discussed and with the above recommended medications ang other aspects of the treatment program. Agrees to return sooner if symptoms worsen or suicidal or homicidal ideations occur. support and education provided concerning illness and treatment plan, risks and benefits, pt verbalized understanding of the same and agreeable _DC Wellbutrin __continue taper Paroxetine and DC __trial and transition to Fluoxetine for depression and anxiety, evaluate at follow up __continue Fluoxetine feels less depressed, somewhat more anxious, sleeping better, evaluate at follow up __working on finding a job, improved mood with making this decision, feels increased control of his life after making this decision __continues family therapy with parents 04/18/2024 Depression (ICD-10 - F32.9) Reasons, potential benefits, interactions and side effects of all medications were discussed.The Patient/Guardian asked appropriate questions, appeared to understand the answers, and decided to accept the treatment and continue being followed.Alternatives and expected course without treatment were reviewed.The Patient/Guardian is aware of the need to contact the office or return for an earlier appointment if any problems or concerns arise. May also contact the 24-hour crisis hotline ([facility]), refer to the closest emergency room or call 911 if new symptoms arise or existing symptoms worsen. The Patient/Guardian is aware that this would apply to symptoms like: suicidal ideation, homicidal ideation, high risk behaviors, manic symptoms, psychotic symptoms, physical symptoms, or any other symptoms that may be dangerous to self or others.Greater than 50% of time spent on coordination and counseling where psychopharmacology as well as psychotherapeutic interventions were discussed along with review of treatments in the past.Education provided concerning need for adequate hydration.Patient/Guar conchis verbalized understanding of education, treatment plan and follow up. Appointment performed in person.Follow up in 2 MO or sooner as needed. May self-administer or be administered own oral medication per [facility] Protocols. Provided informed consent with understanding of side effects, risks and benefits as well as alternative treatments as previously discussed and with the above recommended medications ang other aspects of the treatment program. Agrees to return sooner if symptoms worsen or suicidal or homicidal ideations occur. support and education provided concerning illness and treatment plan, risks and benefits, pt verbalized understanding of the same and agreeable _DC Wellbutrin __continue Paroxetine and Paxil for depression, anxiety, evaluate at follow up __feeling better, feels mood has stabilized, feels less depressed, feels somewhat anxious, but feels anxiety is managable. Prefers to continue with same meds, same dosage for now __ 04/18/2024 ADD (attention deficit disorder) (ICD-10 - F90.0) --continue Qelbree for poor focus and concentration evaluate at follow up -[place] PDMP__no concerns 02/22/2024 ADD (attention deficit disorder) (ICD-10 - F90.0) --continue Qelbree for poor focus and concentration evaluate at follow up -[place] PDMP__no concerns 04/13/2024 ADD (attention deficit disorder) (ICD-10 - F90.0) 06/27/2024 ADD (attention deficit disorder) (ICD-10 - F90.0) --somewhat distracted and poor focus at times, continue same dose Qelbree for now for poor focus and concentration, evaluate at follow up 08/15/2024 ADD (attention deficit disorder) (ICD-10 - F90.0) --focus and concentration are pretty good, , continue same dose Qelbree for focus and concentration, evaluate at follow up 11/25/2024 ADD (attention deficit disorder) (ICD-10 - F90.0) --focus and concentration are good, , continue same dose Qelbree for focus and concentration, evaluate at follow up 09/19/2024 ADD (attention deficit disorder) (ICD-10 - F90.0) --focus and concentration are good, , continue same dose Qelbree for focus and concentration, evaluate at follow up 03/14/2024 ADD (attention deficit disorder) (ICD-10 - F90.0) --continue Qelbree for poor focus and concentration evaluate at follow up -[place] PDMP__no concerns Plan Of Treatment No Information Insurance Providers Payer Name Payer Address Payer Phone Subscriber Number Group Number Insured Name Patient Relationship to Insured Coverage Start Date Coverage End Date [facility] [address] [place] [address] [id number] Elfego Childress Self - patient is the insured 1 2 [facility] Attn Claims Department [address] [place] [address] [phone] Elfego Childress Self - patient is the insured 2 [facility] Attn Claims Department [address] [place] [address] [phone] Elfego Childress Self - patient is the insured 2 Medical (General) History Medical History History ICD Code age [age] years old Hx Substanc e use/abuse: denied Medications: wellbutrion 300mg XL, paxil 30mg QD, strattera 80mg QD Medication adherence: self administers Side Effects: none Past Medical Hx: denied Social Hx: lives with his parents- not working Therapy: none Sleep: poor Appetite: stable Breakthrough depression: controlled Crying Spells: none Anxiety/Anger/Irritability: reported some panic attacks Suicidal Ideation: none Homicidal Ideation: none Surgical History Surgery Date(Month/Year) Hospitalization History Reason Date(Month/Year)
--- OUTSIDE RECORDS SUMMARY | 2025-01-27 10:16 | XMS_ITS | Data Portability ---
Author Organization [facility] GREGHay Contreras Address [address] [place] [address] Assessment No assessment recorded. Plan of Treatment Reminders Order Date Submit Date Provider Last Modified By Organization Details Last Modified Time Details Appointments None recorded. Lab PSA, serum or plasma 2016 [facility], [address] [place] [address], [address], [place], [address], 07:15:34 urinalysis , complete 2016 [facility], [address] [facility], [address], [place], [address], 07:15:33 CMP, serum or plasma 2016 [facility], [address] [place] [address], [address], [place], [address], 07:15:32 lipid panel, serum 2016 [facility], [address] [facility], [address], [place], [address], 07:15:33 Referral urologist referral - Please call patient to schedule appt. thank you 2016 [email or web address] Not available 11:33:55 Procedures None recorded. Surgeries None recorded. Imaging None recorded. Medication Orders None recorded. Patient TargetsNo targets recorded. Patient Instructions Encounter Date Encounter Id Patient Instructions Last Modified By Organization Details Last Modified Time 06/10/2017 [id number] Will determine f/u based on labs eewig Not available 06/10/2017 16:35:49 Reason for Referral Urologist Referral for Incom plete emptying of urinary bladder Please call patient to schedule appt. thank you Referring Physician: Chula Pineda, Family Medicine, Encounter Date: 06/10/2017 Results Created Date Observation Date Name Description Value Unit Range Abnormal Flag Note LastModifiedBy Organization Detail LastModifiedTime 06/11/20 17 06/12/2017 CMP, serum or plasm a glucose, serum 84 mg/dL 65-99 Not Available [facility] ([facility]) [address] [place], [address], 06/12/2017 07:15:32 06/11/20 17 06/12/2017 CMP, serum or plasm a BUN 17 mg/dL 6-20 Not Available [facility] ([facility]) [address] [place], [address], 06/12/2017 07:15:32 06/11/20 17 06/12/2017 CMP, serum or plasm a creatinine, serum 0.89 mg/dL 0.76-1 .27 Not Available [facility] ([facility]) [address] [place], [address], 06/12/2017 07:15:32 06/11/20 17 06/12/2017 CMP, serum or plasm a eGFR if nonafricn AM 115 mL/mi n/1.7 3 >59 Not Available [facility] ([facility]) [address] [place], [address], 06/12/2017 07:15:32 06/11/20 17 06/12/2017 CMP, serum or plasm a eGFR if africn AM 133 mL/mi n/1.7 3 >59 Not Available [facility] ([facility]) [address] [place], [address], 06/12/2017 07:15:32 10/05/20 17 06/12/2017 CMP, serum or plasm a BUN/creatini ne ratio 19 9-20 Not Available [facility] ([facility]) [address] [place], [address], 06/12/2017 07:15:32 06/11/20 17 06/12/2017 CMP, serum or plasm a sodium, serum 142 mmol/ L 134-14 4 Not Available [facility] ([facility]) [address] [place], [address], 06/12/2017 07:15:32 06/11/20 17 06/12/2017 CMP, serum or plasm a potassium, serum 5.0 mmol/ L 3.5-5. 2 Not Available [facility] ([facility]) [address] [place], [address], 06/12/2017 07:15:32 06/11/20 17 06/12/2017 CMP, serum or plasm a chloride, serum 102 mmol/ L 96-106 Not Available [facility] ([facility]) [address] [place], [address], 06/12/2017 07:15:32 06/11/20 17 06/12/2017 CMP, serum or plasm a carbon dioxide, total 24 mmol/ L 18-29 Not Available [facility] ([facility]) [address] [place], [address], 06/12/2017 07:15:32 06/11/20 17 06/12/2017 CMP, serum or plasm a calcium, serum 9.4 mg/dL 8.7-10 .2 Not Available [facility] ([facility]) [facility]ly [facility], [facility] [place], [address], 06/12/2017 07:15:32 06/11/20 17 06/12/2017 CMP, serum or plasm a protein, total, serum 6.6 g/dL 6.0-8. 5 Not Available [facility] ([facility]) [address] [facility], [address], 06/12/2017 07:15:32 06/11/20 17 06/12/2017 CMP, serum or plasm a albumin, serum 4.6 g/dL 3.5-5. 5 Not Available [facility] ([facility]) [address] [facility] [place], [address], 06/12/2017 07:15:32 06/11/20 17 06/12/2017 CMP, serum or plasm a globulin, total 2.0 g/dL 1.5-4. 5 Not Available [facility] ([facility]) [address] [facility], [place], [address], 06/12/2017 07:15:32 06/11/20 17 06/12/2017 CMP, serum or plasm a A/G ratio 2.3 1.2-2. 2 above high normal Not Available [facility] ([facility]) [address] [facility], [place], [address], 06/12/2017 07:15:32 06/11/20 17 06/12/2017 CMP, serum or plasm a bilirubin, total 0.4 mg/dL 0.0-1. 2 Not Available [facility] ([facility]) [address] [facility], [place], [address], 06/12/2017 07:15:32 06/11/20 17 06/12/2017 CMP, serum or plasm a alkaline phosphatase, S 62 IU/L 39-117 Not Available [facility] ([facility]) [address] [facility] [place], [address], 06/12/2017 07:15:32 06/11/20 17 06/12/2017 CMP, serum or plasm a AST (SGOT) 12 IU/L 0-40 Not Available [facility] ([facility]) [address] [place], [address], 06/12/2017 07:15:32 06/11/20 17 06/12/2017 CMP, serum or plasm a ALT (SGPT) 12 IU/L 0-44 Not Available [facility] ([facility]) [address] [facility], [place], [address], 06/12/2017 07:15:32 06/11/20 17 06/12/2017 urina lysis , compl ete specific gravity 1.023 1.005- 1.030 Not Available [facility] ([facility]) [address] [facility], [place], [address], 06/12/2017 07:15:33 06/11/20 17 06/12/2017 urina lysis , compl ete pH 6.5 5.0-7. 5 Not Available [facility] ([facility]) [address] [facility], [place], [address], 06/12/2017 07:15:33 06/11/20 17 06/12/2017 urina lysis , compl ete urine-color Yellow yellow Not Available [facility] ([facility]) [address] [facility], [place], [address], 06/12/2017 07:15:33 06/11/20 17 06/12/2017 urina lysis , compl ete appearance Clear clear Not Available [facility] ([facility]) [address] [facility], [place], [address], 06/12/2017 07:15:33 06/11/20 17 06/12/2017 urina lysis , compl ete WBC esterase 1+ negati ve abnormal Not Available [facility] ([facility]) [address] [facility], [place], [address], 06/12/2017 07:15:33 06/11/20 17 06/12/2017 urina lysis , compl ete protein Negati ve negati ve/tra ce Not Available [facility] ([facility]) [address] [facility], [place], [address], 06/12/2017 07:15:33 06/11/20 17 06/12/2017 urina lysis , compl ete glucose Negati ve negati ve Not Available [facility] ([facility]) [address] [place], [address], 06/12/2017 07:15:33 06/11/20 17 06/12/2017 urina lysis , compl ete ketones Negati ve negati ve Not Available [facility] ([facility]) [address] [place], [address], 06/12/2017 07:15:33 06/11/20 17 06/12/2017 urina lysis , compl ete occult blood Negati ve negati ve Not Available [facility] ([facility]) [address] [place], [address], 06/12/2017 07:15:33 06/11/20 17 06/12/2017 urina lysis , compl ete bilirubin Negati ve negati ve Not Available [facility] ([facility]) [address] [place], [address], 06/12/2017 07:15:33 06/11/20 17 06/12/2017 urina lysis , compl ete urobilinogen ,semi-qn 0.2 mg/dL 0.2-1. 0 Not Available [facility] ([facility]) [address] [place], [address], 06/12/2017 07:15:33 06/11/20 17 06/12/2017 urina lysis , compl ete nitrite, urine Negati ve negati ve Not Available [facility] ([facility]) [address] [place], [address], 06/12/2017 07:15:33 06/11/20 17 06/12/2017 urina lysis , compl ete microscopic examination See below: Micro scopi c was indic ated and was perfo rmed. Not Available [facility] ([facility]) [address] [place], [address], 06/12/2017 07:15:33 06/11/20 17 06/12/2017 urina lysis , compl ete WBC 0-5 /hpf 0 - 5 Not Available [facility] ([facility]) [address] [facility], [place], [address], 06/12/2017 07:15:33 06/11/20 17 06/12/2017 urina lysis , compl ete RBC 0-2 /hpf 0 - 2 Not Available [facility] ([facility]) [address] [facility], [place], [address], 06/12/2017 07:15:33 06/11/20 17 06/12/2017 urina lysis , compl ete epithelial cells (non renal) None seen /hpf 0 - 10 Not Available [facility] ([facility]) [address] [facility], [place], [address], 06/12/2017 07:15:33 06/11/20 17 06/12/2017 urina lysis , compl ete epithelial cells (renal) BLENDING COORDINATOR Not Available [facility] ([facility]) [address] [facility], [place], [address], 06/12/2017 07:15:33 06/11/20 17 06/12/2017 urina lysis , compl ete casts Presen t /lpf none seen abnormal Not Available [facility] ([facility]) [address] [facility], [place], [address], 06/12/2017 07:15:33 06/11/20 17 06/12/2017 urina lysis , compl ete cast type Hyalin e casts n/a Not Available [facility] ([facility]) [address] [facility], [place], [address], 06/12/2017 07:15:33 06/11/20 17 06/12/2017 urina lysis , compl ete crystals BLENDING COORDINATOR Not Available [facility] ([facility]) [address] [facility], [place], [address], 06/12/2017 07:15:33 06/11/20 17 06/12/2017 urina lysis , compl ete crystal type BLENDING COORDINATOR Not Available [facility] ([facility]) [address] [facility], [place], [address], 06/12/2017 07:15:33 06/11/20 17 06/12/2017 urina lysis , compl ete mucus threads Presen t not estab. Not Available [facility] ([facility]) [address] [facility], [place], [address], 06/12/2017 07:15:33 06/11/20 17 06/12/2017 urina lysis , compl ete bacteria None seen none seen/f ew Not Available [facility] ([facility]) [address] [facility], [place], [address], 06/12/2017 07:15:33 06/11/20 17 06/12/2017 urina lysis , compl ete yeast BLENDING COORDINATOR Not Available [facility] ([facility]) [address] [facility], [place], [address], 06/12/2017 07:15:33 06/11/20 17 06/12/2017 urina lysis , compl ete trichomonas BLENDING COORDINATOR Not Available [facility] ([facility]) [address] [facility], [place], [address], 06/12/2017 07:15:33 06/11/20 17 06/12/2017 urina lysis , compl ete comment BLENDING COORDINATOR Not Available [facility] ([facility]) [address] [facility], [place], [address], 06/12/2017 07:15:33 06/11/20 17 06/12/2017 urina lysis , compl ete microscopic examination BLENDING COORDINATOR Not Available [facility] ([facility]) [address] [facility], [place], [address], 06/12/2017 07:15:33 06/11/20 17 06/12/2017 lipid panel , serum cholesterol, total 143 mg/dL 100-19 9 Not Available [facility] ([facility]) [address] [facility], [place], [address], 06/12/2017 07:15:33 06/11/20 17 06/12/2017 lipid panel , serum triglyceride s 119 mg/dL 0-149 Not Available [facility] ([facility]) [address] [facility], [place], [address], 06/12/2017 07:15:33 06/11/20 17 06/12/2017 lipid panel , serum HDL cholesterol 35 mg/dL >39 below low normal Not Available [facility] ([facility]) [address] [facility], [place], [address], 06/12/2017 07:15:33 06/11/20 17 06/12/2017 lipid panel , serum VLDL cholesterol aleksey 24 mg/dL 5-40 Not Available [facility] ([facility]) [address] [facility], [place], [address], 06/12/2017 07:15:33 06/11/20 17 06/12/2017 lipid panel , serum LDL cholesterol calc 84 mg/dL 0-99 Not Available [facility] ([facility]) [address] [facility], [place], [address], 06/12/2017 07:15:33 06/11/20 17 06/12/2017 lipid panel , serum comment: BLENDING COORDINATOR Not Available [facility] ([facility]) [address] [facility], [place], [address], 06/12/2017 07:15:33 06/11/20 17 06/12/2017 lipid panel , serum T. chol/HDL ratio 4.1 ratio _unit s 0.0-5. 0 T. Chol/ HDL Ratio Men Women 1/2 Avg.R isk 3.4 3.3 Avg.R isk 5.0 4.4 2X Avg.R isk 9.6 7.1 3X Avg.R isk 23.4 11.0 Not Available [facility] ([facility]) [address] [facility], [place], [address], 06/12/2017 07:15:33 06/11/20 17 06/12/2017 PSA, serum or plasm a prostate specific Ag, serum 0.4 NG/mL 0.0-4. 0 Scooby ECLIA metho dolog y. Accor ding to the Ameri can [employer]rolo g[employer] iatio n, Serum PSA shoul d decre ase and remai n at undet ectab le level s after radic al prost atect rosa. The AUA defin es bioch emica l recur rence as an initi al PSA value 0.2 ng/mL or great er follo wed by a subse quent confi rmato ry PSA value 0.2 ng/mL or great er. Value s obtai joe with diffe rent assay metho ds or kits canno t be used inter clark eaameenay . Resul ts canno t be inter prete d as absol jessica evide nce of the prese nce or absen ce of dick zacarias se. Not Available [facility] ([facility]) [address], [place], [address], 06/12/2017 07:15:34 07/13/20 17 07/13/2017 CT, abdom en + pelvi s, w/ contr ast No observ ation record ed. [facility] [address] [facility], [place], [address], 07/13/2017 13:44:02 03/07/20 24 03/07/2024 CT, abdom en + pelvi s, w/ contr ast No observ ation record ed. [address], [place], [address], 03/07/2024 21:33:50 06/15/20 24 06/15/2024 XR, chest No observ ation record ed. [address] [facility] [address], [place], [address], 06/16/2024 11:20:08 Result Notes None recorded. Problems Name Problem SNOMED Code Status Onset Date Resolution Date Notes Provider Name and Address Organization Details Recorded Time Nicotine dependence 25010129 Active 2016 Chula Pineda PA-C Attn: Accounting ,[address] [facility], [place], [address] , [facility] 7 16:03:56 History of calculus of kidney 064053831 Active 2016 Chula Pineda PA-C Attn: Accounting ,[address] [facility], [place], [address] , [facility] 7 16:21:10 Incomplete emptying of urinary bladder 125382769 Active 2016 Chula Pineda PA-C Attn: Accounting ,[address] [facility], [place], [address] , [facility] 7 16:35:22 Insomnia 368672531 Active 2016 Chula Pineda PA-C Attn: Accounting ,[address] [facility], [place], [address] , [facility] 7 16:35:24 Problem Notes None recorded. Procedures Surgical History None recorded. Imaging Results Imaging Date Name Status LastModified by [facility] Details LastModified Time 07/13/2017 CT, abdomen + pelvis, w/ contrast completed [facility]) [address] [place], [address], 07/13/2017 13:44:02 03/07/2024 CT, abdomen + pelvis, w/ contrast completed [address] [facility] [address], [place], [address], 03/07/2024 21:33:50 06/15/2024 XR, chest completed [address] [facility] [address], [place], [address], 06/16/2024 11:20:08 Procedure Notes None recorded. Medical Equipment None Reported. Allergies No known drug allergies Medications Not known to be on any medication Vitals Date Recorded Body height Oxygen saturation Oxygen saturation in Arterial blood by Pulse oximetry Heart rate Body temperature Systolic blood pressure Diastolic blood pressure Provider Name and Address Organization Details Last Updated DateTime 7 174.63 cm 98 % 98 % 59 /min 97.8 [degF] 118 mm[Hg] 70 mm[Hg] Addis Morrison MA [facility] 7 15:55:20 Date Recorded Body mass index (BMI) Body weight Provider Name and Address Organization Details Last Updated DateTime 06/10/2017 22.7 kg/m2 68418.84 g Chula Pineda PA-C Attn: Accounting,[address] [place], [address], [facility] 06/10/2017 16:16:12 Social History Question Answer Notes LastModified by Organizat ion Details LastModified Time Tobacco Smoking Status Current Every Day Smoker Addis Morrison MA null, [facility] 06/10/2017 15:58:18 What Is Your Level Of Caffeine Consumption? None Information not available 06/10/2017 What Type Of Diet Are You Following? REGULAR Information not available 06/10/2017 Which Illicit Or Recreational Drugs Have You Used? Marijuana Information not available 06/10/2017 Education 2 Year College Informatio n not available 06/10/2017 Are There Any Guns Present In Your Home? No Information not available 06/10/2017 Hard Of Hearing Or Deaf In One Or Both Ears? No Information not available 06/10/2017 Legally Blind In One Or Both Eyes? No Information no t available 06/10/2017 Live Alone Or With Others? With Others Information not available 06/10/2017 What Was The Date Of Your Most Recent Tobacco Screening? 06/10/2017 Information not available 03/31/2019 How Many Children Do You Have? 0 Information not available 06/10/2017 Do You Use Protection During Sex? Usually Information not available 06/10/2017 Seat Belts Used Routinely Yes Information not available 06/10/2017 Are You Sexually Active? Yes Information not available 06/10/2017 Smoke Alarm In Home Yes Information not available 06/10/2017 At What Age Did You Start Smoking Tobacco? 18 Information not available 06/10/2017 How Much Tobacco Do You Smoke? 1 PPD Information not available 06/10/2017 General Stress Level Medium Information not available 06/10/2017 How Many Years Have You Smoked Tobacco? 14 Information not available 06/10/2017 Sex: Unknown Functional Status Question Answer Note LastModified by Organizat ion Details LastModified Time What is your level of alcohol consumption? Occasional Information not available 06/10/2017 Are you currently employed? 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 None Information not available 06/10/2017 Mental Status None recorded. Family History Relationship Description Onset Age of this Age Resolved Age Notes LastModified by Organization Details LastModified Time Mother Depressive disorder [email or web address] Not available 2016 15:56:37 Mother Hypercholest erolemia [email or web address] Not available 2016 15:57:02 Mother Hypertensive disorder [email or web address] Not available 2016 15:57:18 Sister Depressive disorder [email or web address] Not available 2016 15:56:37 Medical History Condition Response Anxiety Disorder Y Kidney or Bladder Problems Y Depression Y Immunizations Vaccine Type Date Status Note Provider Nam e and Address Organization Details Recorded Time Influenza, split virus, quadrivalent, preservative 7 completed Not Available [facility] 09/24/2019 02:34:22 Tdap 7 completed Not Available [facility] 09/24/2019 02:47:58 Past Encounters Encounter ID Performer Location Encounter Start Date Encounter Closed Date Diagnosis/Indication Diagnosis SNOMED-CT Code Diagnosis ICD10 Code Diagnosis Note [id number] Deborah Webb MD [facility] (Adult Med) [facility] [place] [address] 06/10/2017 15:16:50 06/10/2017 16:42:55 Adult health examination 400526268 Z00.01 32YO male here to establish care. He has not seen a PCP in 5-10 years. Active or passive immunization 349506542 Z23 Nicotine dependence 5629 4008 F17.200 Advised to quit Incomplete emptying of urinary bladder 034936800 R39.14 Will refer to urology at this time States that he had kidney stone in 08/2015 and 11/2015 it takes him longer to urinate and more recently he has had sensations that his bladder is empty but then he leaves the bathroom and he needs to return again to urinate. States that this is concerning to him and it has been going on for a while and is wanting to get this checked out. Will let urology decide what time of imaging they would like him to have Insomnia 076409952 G47.0 0 No screen time within an hour of bedNo caffeine close to bed timeTalked about good sleep hygeine and going to bed at the same time every night and waking up at the same time every morningFin d calming activies to do at night like crafting, reading, meditation Advised to try melatonin OTCRTC if no improvemen t Anxiety 99388213 F41.9 Advised to schedule an appointmen t with counseling History of calculus of kidney 231194400 Z87.442 Health Concerns Section Related Observation LastModified by Organization Detai ls LastModified Time None Recorded Concern Status LastModified by Organization Details LastModified Time None Recorded Advance Directives Directive None Recorded Payers Encounter Date Sequence Insurance Name Policy Number Policy Cardoso Covered Member ID Cardoso Member ID Guarantor Name 06/10/2017 1 [facility] (MEDICAID HMO) [id number] Larno Childress [id number] Laron Childress Notes Date Note Type Note Provider Name and Address Organization Details Recorded Time 06/10/2017 text/html 32YO male here to establish care. States that he had kidney stone in 08/2015 and 11/2015 it takes him longer to urinate and more recently he has had sensations that his bladder is empty but then he leaves the bathroom and he needs to return again to urinate. States that this is concerning to him and it has been going on for a while and is wanting to get this checked out.Patient also states that he has a hx/o anxiety and that last year he saw a counselor when he and his girlfriend were hitting a rough patch and that greatly helped him. Denies SI/HI. States that he knows that he smokes more when he is anxious but that he attributes a lot of his smoking to when he takes their dog outside and he sits outside with the dog. Chula Pineda PA-C Attn: Accounting,[address] [facility], [place], [address], [facility] 06/10/2017 16:36:25
[2025-01-27 10:17] VITALS: BP 127/89; PULSE 86; RESP 13; TEMP 36.5; O2SAT 96
[2025-01-27 10:38] LABS: Basophils Absolute Auto 0.1 K/mm3 (0.0-0.1); Basophils Percent Auto 0.7 % (0.2-1.2); Eosinophils Absolute Auto 0.4 K/mm3 (0-0.3); Eosinophils Percent Auto 4.3 % (0-4.4); Hematocrit 45.9 % (42.0-52.0); Hemoglobin 15.2 g/dL (14.0-18.0); Immature Granulocyte Absolute 0.03 K/mm3 (0.00-0.031); Immature Granulocyte Percent A 0.3 % (0-0.5); Lymphocytes Absolute Auto 1.89 K/mm3 (0.9-3.2); Mean Corpuscular HGB Conc 33.1 g/dl (32-36); Mean Corpuscular Hemoglobin 29.9 pg (26-34); Mean Corpuscular Volume 90.4 fl (80-100); Mean Platelet Volume 10.2 fl (7.4-10.4); Monocytes Absolute Auto 0.4 K/mm3 (0.1-0.6); Monocytes Percent Auto 4.3 % (2.6-8.5); Neutrophils Absolute Auto 6.7 K/mm3 (1.3-6.7); Neutrophils Percent Auto 70.4 % (45.5-73.1); Platelet Count Result 380 k/mm3 (150-375); Red Blood Count 5.08 M/mm3 (4.6-6.20); Red Cell Distribution Width 13.6 % (11.5-14.5); White Blood Count 9.5 K/mm3 (4.5-10.0)
--- NOTE | 2025-01-27 10:54 | ED_ITS ---
HPI - Abdominal Pain General Chief Complaint: Abdominal Pain Stated Complaint: abdominal pain X2 weeks Time Seen by Provider: 01/27/25 10:19 History of Present Illness HPI narrative: Patient is a 39-year-old male who presents to the ER with abdominal pain that started 2 weeks ago. He reports his pain comes and goes but is mostly on the right flank/side of his abdomen. Patient reports his last bowel movement was this morning and was normal for him. He reports he has had intermittent diarrhea over the past 2 weeks. Patient denies any urinary symptoms or recent fevers. He endorses a history of kidney stones, depression, and anxiety. Related Data Home Medications ?Medication ?Instructions ?Recorded ?Confirmed ?Last Taken ?Type paroxetine HCl 10 mg tablet 10 mg PO QAM 02/03/20 06/15/24 02/03/20 History fluoxetine 20 mg capsule 30 mg PO DAILY 05/31/24 06/15/24 Unknown History viloxazine 200 mg capsule,extended 200 mg PO DAILY 05/31/24 06/15/24 Unknown History release 24 hr (Qelbree) clindamycin phosphate 1 % lotion 1 applic topical BID 06/15/24 06/15/24 Unknown History Allergies Allergy/AdvReac Type Severity Reaction Status Date / Time No Known Allergies Allergy Verified 01/27/25 10:21 Review of Systems 2 Review of Systems: All systems reviewed & are unremarkable except as noted in HPI and below PMFSH Past Medical History Medical History Migraine headache Social History Social History Smoking status: Never smoker Gender identity (if verbalized by the patient): Male Exam 2 Narrative: GENERAL: Well appearing, well-nourished, non-toxic, in no acute distress. HEAD: Normocephalic, atraumatic. NECK: Supple. No adenopathy, no masses. RESPIRATORY: Airway patent, respirations nonlabored. Clear to auscultation bilaterally, no rales, rhonchi, wheezing. CARDIOVASCULAR: Regular rate and rhythm without murmurs, rubs, or gallops. Peripheral pulses 2+ and equal bilaterally. ABDOMINAL: Soft, tender, nondistended, no hepatosplenomegaly. Normoactive BS. + Jason's sign, + Rovsing's sign MUSCULOSKELETAL: Moves all extremities. Strength/ROM intact without gross deformities. SKIN: Warm, dry, normal color. No rashes. NEURO: A&O X3. Speech clear. Cranial nerves II-XII intact. No ataxic movements. PSYCHIATRIC: Appropriate mood and affect. Normal interaction. Course Vital Signs Vital signs: Vital Signs Temperature 36.5 C 01/27/25 10:17 Pulse Rate 86 01/27/25 10:17 Respiratory Rate 13 01/27/25 10:17 Blood Pressure 127/89 01/27/25 10:17 Pulse Oximetry 96 01/27/25 10:17 Oxygen Delivery Room Air 01/27/25 10:17 Temperature 36.5 C 01/27/25 10:17 Pulse Rate 86 01/27/25 10:17 Respiratory Rate 13 01/27/25 10:17 Blood Pressure 127/89 01/27/25 10:17 Pulse Oximetry 96 01/27/25 10:17 Oxygen Delivery Room Air 01/27/25 10:17 MDM - Abdominal Pain MDM Narrative Medical decision making narrative: Patient is a 39-year-old male who presents to the ER with abdominal pain that started 2 weeks ago. He reports his pain comes and goes but is mostly on the right flank/side of his abdomen. Patient reports his last bowel movement was this morning and was normal for him. He reports he has had intermittent diarrhea over the past 2 weeks. Patient denies any urinary symptoms or recent fevers. He endorses a history of kidney stones, depression, and anxiety. Labs Ordered: CBC, CMP, lipase, UA Imaging Ordered: CT abdomen pelvis Medications Ordered: 1 L normal saline IV bolus Results: CT abdomen pelvis indicates Scans through the lung bases are unremarkable. The liver, spleen, pancreas, gallbladder, and adrenal glands are within normal limits. 9 mm nonobstructing right renal stone present. 8 mm nonobstructing left renal stone noted. No evidence of aortic aneurysm. No lymphadenopathy. No bowel obstruction or bowel wall thickening. There is no evidence to suggest acute appendicitis. Images through the pelvis were performed. Urinary bladder unremarkable. No pelvic mass seen. No ascites. Diagnosis: Nonobstructing bilateral kidney stones Consults: Urology (outpatient) Patient Education/Shared MDM: Results of lab work and imaging shared with patient. Patient strongly advised to maintain hydration status upon discharge and follow-up with urology as soon as possible. He will not be discharged home with any new prescriptions. Strict return precautions provided. Patient verbalized understanding and is in agreement with plan. Vital signs stable at time of discharge. All questions answered. Differential Diagnosis Differential diagnosis: Likely abdominal pain, acute appendicitis, calculus of kidney and small bowel obstruction Lab Data Attestation: I reviewed the patient's lab results. 01/27/25 10:32 01/27/25 10:32 Labs: Lab Results 01/27/25 01/27/25 Range/Units 10:32 11:09 WBC 9.5 (4.5-10.0) K/mm3 RBC 5.08 (4.6-6.20) M/mm3 Hgb 15.2 (14.0-18.0) g/dL Hct 45.9 (42.0-52.0) % MCV 90.4 (80-100) fl MCH 29.9 (26-34) pg MCHC 33.1 (32-36) g/dl RDW 13.6 (11.5-14.5) % Plt Count 380 H (150-375) k/mm3 MPV 10.2 (7.4-10.4) fl Immature Gran % (Auto) 0.3 (0-0.5) % Neut % (Auto) 70.4 (45.5-73.1) % Lymph % (Auto) 20.0 (18.3-44.2) % Stoddard % (Auto) 4.3 (2.6-8.5) % Eos % (Auto) 4.3 (0-4.4) % Baso % (Auto) 0.7 (0.2-1.2) % Lymph # (Auto) 1.89 (0.9-3.2) K/mm3 Stoddard # (Auto) 0.4 (0.1-0.6) K/mm3 Eos # (Auto) 0.4 H (0-0.3) K/mm3 Baso # (Auto) 0.1 (0.0-0.1) K/mm3 Abs Immat Gran (auto) 0.03 (0.00-0.031) K/mm3 Absolute Neuts (auto) 6.7 (1.3-6.7) K/mm3 Absolute Nucleated RBC 0.000 (0.0-0.012) K/mm3 Nucleated RBC % 0.0 (0.0-0.2) % Sodium 139 (137-145) mmol/L Potassium 4.6 (3.4-5.0) mmol/L Chloride 106 (98-107) mmol/L Carbon Dioxide 25 (22-30) mmol/L Anion Gap 8 (4-12) mmol/L BUN 14 (9-20) mg/dL Creatinine 0.84 (0.7-1.3) mg/dL Estim Creat Clear Calc 102 ml/min Estimated GFR > 60 (59 - ) Glucose 119 H (65-110) mg/dL Calcium 9.2 (8.4-10.2) mg/dL Total Bilirubin 0.3 (0.2-1.3) mg/dL AST 33 (17-59) U/L ALT 28 (6-50) U/L Alkaline Phosphatase 122 (38-126) U/L Total Protein 7.0 (6.3-8.2) g/dL Albumin 4.4 (3.5-5.1) g/dL Lipase 159 (23-300) U/L Urine Color Yellow (Yellow) Urine Appearance Clear (Clear) Urine pH 5.5 (5.0-9.0) Ur Specific [place] 1.023 (1.001-1.035) Urine Protein Negative (Negative) mg/dL Urine Glucose (UA) Negative (Negative) mg/dL Urine Ketones Trace H (Negative) mg/dL Ur Blood (Man) Negative (Negative) Urine Nitrate Negative (Negative) Urine Bilirubin Negative (Negative) Urine Urobilinogen 0.2 (<2.0) mg/dL Leukocyte Esterase Rfl Negative (Negative) VARGHESE/UL Imaging Data Attestation: I personally reviewed and interpreted this imaging study as follows: Radiologist's impression: ITS Impressions Abdomen/Pelvis CT 01/27/25 12:00 Impression: No acute abnormality. Bilateral nonobstructing renal stones, as detailed above. Discharge Plan Discharge Clinical Impression: Bilateral kidney stones, Acute flank pain, Renal colic Patient Disposition: Home Condition: Stable Instructions: Antibiotic Form Additional Instructions: Please return to the ER with any worsening symptoms. Follow-up with Urology as soon as possible. Take all regularly scheduled medications as prescribed. Please remember to drink lots of water. Patient Language: [place] Prescriptions: No Action fluoxetine 20 mg capsule 30 mg PO DAILY Qelbree 200 mg capsule,extended release 24hr 200 mg PO DAILY clindamycin phosphate 1 % lotion 1 applic TOPICAL BID baclofen 10 mg tablet 10 mg PO TID 5 Days Qty: 15 0RF lidocaine 5 % adhesive patch,medicated 1 patch topical DAILY Qty: 15 0RF Rx Instructions: leave on most painful area for up to 12 hrs albuterol sulfate 90 mcg/actuation HFA aerosol inhaler 2 puff inhalation QID PRN (Reason: shortness of breath or wheezing) Qty: 6.7 0RF (DME) Aerochamber MV Spacer See Rx Instructions .Route Qty: 1 0RF Rx Instructions: As directed paroxetine HCl 10 mg Tablet 10 mg PO QAM Follow-up/Referrals: Toan,TYRONE Waller [Primary Care Provider] - Ilan Encarnacion MD [Physician] - (urology) Time of Disposition: 13:13
[2025-01-27 10:56] LABS: Alanine Aminotransferase 28 U/L (6-50); Albumin Level 4.4 g/dL (3.5-5.1); Alkaline Phosphatase 122 U/L (38-126); Anion Gap 8 mmol/L (4-12); Aspartate Amino Transferase 33 U/L (17-59); Bilirubin,Total 0.3 mg/dL (0.2-1.3); Blood Urea Nitrogen 14 mg/dL (9-20); Calcium 9.2 mg/dL (8.4-10.2); Carbon Dioxide 25 mmol/L (22-30); Chloride 106 mmol/L (98-107); Estimated CRCL calculation 102 ml/min; Estimated Glomerular Filt Rate > 60; Glucose 119 mg/dL (65-110); Lipase 159 U/L (23-300); Potassium 4.6 mmol/L (3.4-5.0); Sodium 139 mmol/L (137-145)
[2025-01-27 11:20] LABS: Add Urine Microscopic? NO; Appearance Urine Clear (Clear); Bilirubin Urine Negative (Negative); Blood Urine Negative (Negative); Color Urine Yellow (Yellow); Glucose Urine UA Negative (Negative); Ketones Urine Trace mg/dL (Negative); Leukocyte Esterase Ur Negative LEU/UL (Negative); Nitrate Urine Negative (Negative); Protein Urine Negative (Negative); Specific Grav Ur 1.023 (1.001-1.035); Urobilinogen Urine 0.2 mg/dL (<2.0); pH Urine 5.5 (5.0-9.0)
[2025-01-27] MEDS: SODIUM CHLORIDE 0.9% IV 1,000 ML 999 ML IV CONT (13:07)
== END 2025-01-27 14:16 | disposition home or self-care (01) ==
PROVIDERS: Emergency Medicine; Emergency Provider Registered Nurse; PCP Physician Assistant
DX: N20.0 Calculus of kidney (principal); F32.A Depression, unspecified; F41.9 Anxiety disorder, unspecified; Z87.442 Personal history of urinary calculi; Z79.899 Other long term (current) drug therapy
CPT/HCPCS: 36415; 74177; 80053; 81003; 83690; 85025; 96360; 99284; J7030; Q9967

== ENCOUNTER 2025-07-09 10:28 | Emergency (ER) | payer OTHER, SELFPAY ==
--- OUTSIDE RECORDS SUMMARY | 2025-07-09 10:30 | XMS_ITS | Clinical Summary ---
Author Organization [facility] Address [address] [place] [address] Care Team Providers Care Graphic Manager Name Role Phone Unavailable Primary Care Provider Unavailabl e Social History Tobacco Use Types Packs/Day Years Used Date Smoking Tobacco: Never Assessed Sex and Gender Information Value Date Recorded Sex Assigned at Not on file Legal Sex Male 6:46 PM CDT Gender Identity Not on file Sexual Orientation Not on file Plan of Treatment Health Maintenance Due Date Last Done Comments Annual Physical 1990 Hepatitis C 2005 DTaP, Tdap and Td Vaccines ( 1 - Tdap) 2006 Hepatitis B Vaccines (1 of 3 - 19+ 3-dose series) 2006 HPV Vaccines (1 - 3-dose SCD M series) 2014 COVID-19 Vaccine ( - 2024-2 6 season) 2025 Influenza Adult (#1) 2025 Hepatitis A Vaccines Aged Out No long er eligible based on patient's age to complete this topic Meningococcal B Vaccine Aged Out No l onger eligible based on patient's age to complete this topic Meningococcal Vaccine Aged Out No humza debbi eligible based on patient's age to complete this topic Pneumococcal Vaccine: Pediat rics (0 to 5 Years) and At-Risk Patients (6 to 49 Years) Aged Out No longer eligible b ased on patient's age to complete this topic RSV Immunizations Under 20 Months Aged Out No longer eligible based on patient's age to complete this topic
--- OUTSIDE RECORDS SUMMARY | 2025-07-09 10:30 | XMS_ITS | Patient Health Record ---
Author Organization [facility] Address [address] [place] [address] Care Team Providers Care Backup Administrative Coordinator Name Role Phone Ron Ledesmaie Primary Care Provider Allergies No Known Allergies Reason For Referral No Information Medications Medication SIG (Take, Route, Frequency, Duration) Notes Start Date End Date Status FLUoxetine HCl 40 MG 1 capsule Orally Once a day; Duration: 30 days Active Qelbree 200 MG 1 capsule Orally Once a day; Duration: 30 days *PA approval expires 05/24/26. Active Social History Tobacco Use: Social History Observation Description Date Details (start date - stop date) Current Smoker 05/23/2003 - NA Sex Assigned At : Social History Observation Description Sex Assigned At Male Alcohol Screen (Audit-C) Question Answer Notes Did [...] Negative Tobacco Control (Standard) Question Answer Notes When did you start smoking? 05/23/2003 Tobacco use: Current smoker How often do you smoke cigarettes? Every day How many cigarettes a day do you smoke? 11-20 How soon after you wake up d o you smoke your first cigarette? Within 5 minutes Are you interested in quitting? Not ready to fantasma t Additional Findings: Tobacco user Modera te cigarette smoker (10-19 cigs/day) Section Notes: ahdh, depression, anxiety ahdh, depression, [...] W/U Status Risk Notes Problem Tobacco user (641489712) Nicotine dependence, unspecified, uncomplicated (F17.200) Active confirmed Problem Depression (837544676) Depression (F32.9) Active confirmed Problem Attention deficit disorder (45603926) ADD (attention deficit disorder) (F90.0) Active confirmed Problem Overweight (403297980) Over weight (E66.3) Active confirmed Vital Signs Heart Rate 80 /min 03/20/2025 Temperature 98.6 degrees Fahrenheit 03/20/2025 Respiratory Rate 16 /min 03/20/2025 Blood pressure diastolic 68 mm Hg 03/20/2025 Oximetry 98 % 03/20/2025 Height 70 in 03/20/2025 Blood pressure systolic 112 mm Hg 03/20/2025 Weight 179.8 lbs 03/20/2025 BMI 25.8 kg/m2 03/20/2025 Encounters Encounter Location Date Provider Diagnosis Formerly [facility] [address] [place] [address] 08/15/2024 Diamond Sparr Depression F32.9 and ADD (attention deficit disorder) F90.0 [facility]ly [facility] [address] [place] [address] 09/19/2024 Diamond Sparr Depression F32.9 and ADD (attention deficit disorder) F90.[address] [address] 11/25/2024 Diamond Sparr Depression F32.9 and ADD (attention deficit disorder) F90.0 [facility]ly [facility] [address] [place] [address] 03/20/2025 Diamond Sparr Depression F32.9 ; ADD (attention deficit disorder) F90.0 and Over weight E66.3 Formerly [facility] [address] [place] [address] 06/07/2025 Diamond Acunar Depression F32.9 and ADD (attention deficit disorder) F90.[address] [address] 09/15/2024 Diamond Sparr [address] [address] 02/16/2025 Diamond Sparr ADD (attention deficit disorder) F90.0 and Depression F32.[address] [address] 05/24/2025 Diamond Sparr ADD (attention deficit disorder) F90.0 and Depression F32.9 Formerly [facility] [address] [address] 05/24/2025 Diamond Ledesma Assessments Encounter Date Diagnosis (ICD Code) Assessment Notes Treatment Notes Treatment Clinical Notes Section Notes 08/15/2024 Depression (ICD-10 - F32.9) Reasons, potential [...] May also contact the 24-hour crisis hotline ([facility]), refer to the closest emergency room or [...] or be administered own oral medication per [place] Protocols. Provided informed consent with understanding of [...] inches from your face but follow the paint mixer hand's instructions about distance. Keep eyes open but do not look directly into the light. 09/19/2024 Depression (ICD-10 - F32.9) Reasons, potential [...] or be administered own oral medication per [place] Protocols. Provided informed consent with understanding of [...] inches from your face but follow the paint mixer hand's instructions about distance. Keep eyes open but do not look directly into the light. 02/16/2025 ADD (attention deficit disorder) (ICD-10 - F90.0) 03/20/2025 Depression (ICD-10 - F32.9) Reasons, potential benefits, [...] plan and follow up. Appointment performed in personFollow up in 4-6 weeks or sooner as needed. May self-administer or be administered own oral medication per [place] Protocols. Provided informed consent with understanding of [...] understanding of the same and agreeable __feeling pretty good, mood has been stable. The job he started a few months ago didn't work out and he is currently looking for another job. Is doing [employer] until he finds another job. Mild depression and anxiety. Good sleep, denies mood swings or irritability. Experiences night sweats occasionally. , Denies SI/HI, AH/VH. Prefers to continue with same meds, same dose. Education provided related to tapering Paxil, verbalized understanding related to the same. Will adjust Fluoxetine as needed depending on mood/depression after Paxil is DC'd. Pt recently dx with kidney stones, concerned kidney stones may be related to meds. Education provided related to SE of meds. Recommended pt follow up with urologist in his insurance network. _continue Fluoxetine for depression and anxiety, evaluate at follow up __taper and DC Paxil for depression, anxiety, evaluate at follow up __ __ 11/25/2024 Depression (ICD-10 - F32.9) Reasons, potential [...] May also contact the 24-hour crisis hotline ([facility]), refer to the closest emergency room or [...] or be administered own oral medication per [place] Protocols. Provided informed consent with understanding of [...] anxiety, evaluate at follow up __ __ 05/24/2025 ADD (attention deficit disorder) (ICD-10 - F90.0) 06/07/2025 Depression (ICD-10 - F32.9) Reasons, potential benefits, [...] Appointment performed via telephone appt with pt consent. Follow up in 3 MO or sooner as needed. May self-administer or be administered own oral medication per [place] Protocols. Provided informed consent with understanding of [...] understanding of the same and agreeable __feeling pretty good, mood has been stable. Found another job that he likes pretty well, has been working there 3 MO. Minimal depression and anxiety, feels these are manageable. Good sleep, denies mood swings or irritability. Experiences night sweats occasionally, less than weekly, not as severe. Denies SI/HI, AH/VH. DC'd Paxil. Feels mood is stable without Paxil. Prefers to continue with same meds, same dose. _continue Fluoxetine for depression and anxiety, evaluate at follow up __DC Paxil __ 06/07/2025 ADD (attention deficit disorder) (ICD-10 - F90.0) - focus and concentration ok, easily loses focus with routine tasks at times, feels Qelbree has been effective. - continue same dose Qelbree for focus and concentration, evaluate at follow up 11/25/2024 ADD (attention deficit disorder) (ICD-10 - F90.0) --focus and concentration are good, , continue same dose Qelbree for focus and concentration, evaluate at follow up 02/16/2025 Depression (ICD-10 - F32.9) 05/24/2025 Depression (ICD-10 - F32.9) 03/20/2025 ADD (attention deficit disorder) (ICD-10 - F90.0) - focus and concentration ok, easily loses focus with external stimuli, continue same dose Qelbree for focus and [...] focus and concentration, evaluate at follow up 03/20/2025 Over weight (ICD-10 - E66.3) 03/20/2025 Other Engaged individ ual in suicide risk assessment. Provided risk based intervention to ensure saftey and linkage to ongoing services Plan Of Treatment No Information Insurance Providers Payer Name Payer Address Payer Phone Subscriber Number Group Number Insured Name Patient Relationship to Insured Coverage Start Date Coverage End Date [facility] [address] [place] [address] [id number] Elfego Childress Self - patient is the insured 1 2 [facility] Attn Claims Department [address] [place] [address] [phone] [id number] Elfego Childress Self - patient is the insured 2 [facility] Att Claims Department [address] [place] [address] [phone] [phone] Elfego Childress Self - patient is the [...]
--- OUTSIDE RECORDS SUMMARY | 2025-07-09 10:31 | XMS_ITS | Patient Health Record ---
Author Organization [facility] [employer] Address [address] [place] [address] Care Team Providers Care Subway Train Operator Name Role Phone Chung iMller Unavailable [phone] Reason For Referral No Information Medications Medication SIG (Take, Route, Frequency, Duration) Notes Start Date End Date Status PARoxetine HCl 10 MG Tablet Oral 05/29/2022 Active Myrbetriq 50 MG Tablet Extended Release 24 Hour Oral 05/29/2022 Active Wellbutrin XL 300 MG Tablet Extended Release 24 Hour Oral 05/29/2022 Active ID Now COVID-19 Kit In Vitro *Reorder [facility] for eRx and Interaction Alerts* 05/29/2022 Active Qelbree 200 MG Capsule Extended Release 24 Hour Oral *Reorder from [facility] for eRx and Interaction Alerts* 05/29/2022 Active SUMAtriptan Succinate 50 MG Tablet Oral 05/29/2022 Active Atomoxetine HCl 80 MG Capsule Oral 05/29/2022 Active buPROPion HCl ER (XL) 300 MG Tablet Extended Release 24 Hour Oral 05/29/2022 Active PARoxetine HCl 30 MG Tablet Oral 05/29/2022 Active Atomoxetine HCl 25 MG Capsule Oral 05/29/2022 Active Immunizations Vaccine Route Administration Date Status Comme nts Tdap Unknown 06/10/2017 Administered [employer] Covid-19 Vac cine 2nd dose Unknown 01/12/2021 Administered Influenza virus vaccine, quadrivalent (IIV4), split virus, 0.25 mL dosage Unknown 06/10/2017 Administered Social History Social History Additional Details Category Social Info Options Details Migrated Social History Migrated Social History Alcohol Intake: Occasional 10/15/2020,Tobacco Years: Former smoker 10/15/2020 Plan Of Treatment No Information Insurance Providers Payer Name Payer Address Payer Phone Subscriber Number Group Number Insured Name Patient Relationship to Insured Coverage Start Date Coverage End Date [place] [employer] [address] [address] [place] [address] [id number] RACHEL ACOSTA Self - patient is the insured
--- OUTSIDE RECORDS SUMMARY | 2025-07-09 10:32 | XMS_ITS | Clinical Summary ---
Author Organization [facility] Address [address] [place] [address] [place] [address] Care Team Providers Care Professor Of Family Medicine Name Role Phone Unavailable Primary Care Provider Unavailabl e Allergies No known active allergies Medications PARoxetine HCl (PAXIL) 40 mg tablet Take 40 mg by mouth. Active SUMAtriptan (IMITREX) 50 mg tablet sumatriptan [...] on file Legal Sex Male 7:48 PM GAS OPERATIONS SUPERINTENDENT Gender Identity Not on file Sexual Orientation Not on file Last Filed Vital Signs Vital Sign Reading Time Taken Comments Blood Pressure 114/76 09/28/2020 2:08 PM GAS OPERATIONS SUPERINTENDENT Pulse 99 09/28/2020 2:08 PM GAS OPERATIONS SUPERINTENDENT Temperature 36.2 C (97.1 F) 09/28/2020 2:08 PM GAS OPERATIONS SUPERINTENDENT Respiratory Rate 18 09/28/2020 2:08 PM GAS OPERATIONS SUPERINTENDENT Oxygen Saturation 99% 09/28/2020 2:08 PM GAS OPERATIONS SUPERINTENDENT Inhaled Oxygen Concentration - - Weight 88.5 kg (195 lb) 09/28/2020 2:08 PM GAS OPERATIONS SUPERINTENDENT Height 177.8 cm (5' 10) 09/28/2020 2:08 PM GAS OPERATIONS SUPERINTENDENT Body Mass Index 27.98 09/28/2020 2:08 PM GAS OPERATIONS SUPERINTENDENT Plan of Treatment Health Maintenance Due Date Last Done Comments DTAP/TDAP/TD VACCINES (1 - Tdap) 2006 HEPATITIS B VACCINES (1 of 3 - 19+ 3-dose series) 03/2006 HPV VACCINES (1 - 3-dose SCDM series) 2014 INFLUENZA VACCINE (#1) 2025 Insurance
[2025-07-09 10:45] VITALS: BP 148/93; PULSE 73; RESP 18; TEMP 35.9; O2SAT 99
--- NOTE | 2025-07-09 11:04 | ED.GENADULT ---
HPI - General Adult General Chief complaint: Dental/Oral Stated complaint: Dental Pain History of Present Illness HPI narrative: Laron Childress is a 40 Year old male presents with complaints of having a worsened dental pain to the right 1st molar. He states that it has been broken for quite some time but the pain has been getting much worse starting yesterday night. He states he does have the safe also both but he has not seen them for a few days. He denies any fevers or chills states he has been taking ibuprofen for the pain. Related Data Home Medications ?Medication ?Instructions ?Recorded ?Confirmed ?Last Taken ?Type paroxetine HCl 10 mg tablet 10 mg PO QAM 02/03/20 06/15/24 02/03/20 History fluoxetine 20 mg capsule 30 mg PO DAILY 05/31/24 07/09/25 Unknown History viloxazine 200 mg capsule,extended 200 mg PO DAILY 05/31/24 06/15/24 Unknown History release 24 hr (Qelbree) clindamycin phosphate 1 % lotion 1 applic topical BID 06/15/24 06/15/24 Unknown History Allergies Allergy/AdvReac Type Severity Reaction Status Date / Time No Known Allergies Allergy Verified 07/09/25 10:43 Review of Systems Review of Systems: All systems reviewed & are unremarkable except as noted in HPI and below PMFSH Past Medical History Medical History Migraine headache Social History Social History Smoking status: Never smoker Gender identity (if verbalized by the patient): Male Exam Narrative: GENERAL: Well-appearing, well-nourished, and in no acute distress. HEAD: Normocephalic, atraumatic. EYES: PERRLA and EOMI. ENT: Nares clear, no rhinorrhea or epistaxis. Mucous membranes moist. Oropharynx without tonsillar hypertrophy exudate or other lesions. Bilateral TMs pearly hall non bulging, Right first molar + decay with possible pus coming from the area, he refused to allow palpation to that area. NECK: Supple. No adenopathy or masses. No carotid bruits or JVD CHEST: Clear to auscultation. No respiratory distress. No wheezes rales or rhonchi HEART: Regular rate and rhythm. No murmur heard. Normal peripheral pulses. EXTREMITIES: Normal range of motion. No edema. SKIN: Warm, dry, no rash. NEURO: No focal deficits. Alert and oriented x3. PSYCH: Normal mood and affect. Course Course Level of Care: Express Care Visit Vital Signs Vital signs: Vital Signs Temperature 35.9 C L 07/09/25 10:45 Pulse Rate 73 07/09/25 10:45 Respiratory Rate 18 07/09/25 10:45 Blood Pressure 148/93 H 07/09/25 10:45 Pulse Oximetry 99 07/09/25 10:45 Oxygen Delivery Room Air 07/09/25 10:45 Temperature 35.9 C L 07/09/25 10:45 Pulse Rate 73 07/09/25 10:45 Respiratory Rate 18 07/09/25 10:45 Blood Pressure 148/93 H 07/09/25 10:45 Pulse Oximetry 99 07/09/25 10:45 Oxygen Delivery Room Air 07/09/25 10:45 Medical Decision Making MDM Narrative Medical decision making narrative: Patient with worsening dental pain and dental decay,. unable to palpate area, but noted to possibly having pus from the area of tenderness No systemic signs or symptoms. Antibiotics course provided. Follow-up instructions given for dental/oral surgery clinics. Patient was given return precautions and discharged home in stable condition. Pulse oximetry interpretation: not hypoxic. Disposition: Discharge to home in stable condition. Impression: Acute dental pain, likely due to dental caries. Medical Records Medical records reviewed: Yes I reviewed the external patient's medical records. Vital Signs Vital Signs: Vital Signs Temperature 35.9 C L 07/09/25 10:45 Pulse Rate 73 07/09/25 10:45 Respiratory Rate 18 07/09/25 10:45 Blood Pressure 148/93 H 07/09/25 10:45 Pulse Oximetry 99 07/09/25 10:45 Oxygen Delivery Room Air 07/09/25 10:45 Temperature 35.9 C L 07/09/25 10:45 Pulse Rate 73 07/09/25 10:45 Respiratory Rate 18 07/09/25 10:45 Blood Pressure 148/93 H 07/09/25 10:45 Pulse Oximetry 99 07/09/25 10:45 Oxygen Delivery Room Air 07/09/25 10:45 vitals reviewed Lab Data Lab results reviewed: Yes I reviewed the patient's lab results. Discharge Plan Discharge Clinical Impression: Toothache, Dental abscess Patient Disposition: Home Condition: Stable Instructions: Antibiotic Form Additional Instructions: Start the antibiotic as ordered Continue to take the Ibuprofen for pain as ordered You may also take Tylenol for pain with that You can also try to get Oral gel from the pharmacy to apply to the area of pain Please follow up with a dentist as discussed. If you develop worsening sympotms, fever, chills, vomiting Patient Language: Luxembourgish Prescriptions: New amoxicillin-pot clavulanate 875-125 mg tablet 1 tablet PO Q12H Qty: 20 0RF ibuprofen 600 mg tablet 600 mg PO TID PRN (Reason: pain) Qty: 30 0RF No Action fluoxetine 20 mg capsule 30 mg PO DAILY Qelbree 200 mg capsule,extended release 24hr 200 mg PO DAILY clindamycin phosphate 1 % lotion 1 applic TOPICAL BID lidocaine 5 % adhesive patch,medicated 1 patch topical DAILY Qty: 15 0RF Rx Instructions: leave on most painful area for up to 12 hrs (DME) Aubree VELIZ Spacer See Rx Instructions .Route Qty: 1 0RF Rx Instructions: As directed paroxetine HCl 10 mg Tablet 10 mg PO QAM Follow-up/Referrals: Toan,TYRONE Waller [Primary Care Provider, Unknown] - 1 Week Stand Alone Forms: Work/School Release IP Time of Disposition: 11:11
== END 2025-07-09 11:14 | disposition home or self-care (01) ==
PROVIDERS: Emergency Provider Nurse Practitioner Family; PCP Physician Assistant
DX: K08.89 Other specified disorders of teeth and supporting structures (principal); K04.7 Periapical abscess without sinus
CPT/HCPCS: 99213; G0463